=== PATIENT | female | born 1970 | race Caucasian/White ===

== ENCOUNTER → 2016-12-24 | Outpatient (CLI) | payer BC ==
--- NOTE | 2016-12-25 09:18 | MM ---
Reason for exam: screening (asymptomatic). Last mammogram was performed 2 years and 11 months ago. History: Family history of breast cancer in paternal cousin and breast cancer in paternal grandmother. Benign US breast aspiration single RT of the right breast, February 08, 2014. Benign US biopsy breast VAD RT of the right breast, February 08, 2014. Cyst aspiration of the right breast. Excisional biopsy of the left breast. Physical Findings: A clinical breast exam by your physician is recommended on an annual basis and results should be correlated with mammographic findings. MG Screening Mammo w CAD Bilateral CC and MLO view(s) were taken. Prior study comparison: January 29, 2014, bilateral MG diagnostic mammo w CAD MAAME. The breast tissue is heterogeneously dense. This may lower the sensitivity of mammography. Previous mammotome biopsy within the right breast. There is chronic nodularity bilaterally. This finding is changed when compared with previous exams, increase in size in the left breast. ASSESSMENT: Incomplete: need additional imaging evaluation, BI-RAD 0 RECOMMENDATION: Ultrasound of both breasts. [facility] will attempt to contact patient to return for ultrasound.
== END | disposition home or self-care (01) ==
LOC: RADMAMWWP 09:19
PROVIDERS: ATTEND Family Medicine
DX: Z12.31 Encounter for screening mammogram for malignant neoplasm of breast (principal); R92.8 Other abnormal and inconclusive findings on diagnostic imaging of breast

== ENCOUNTER → 2016-12-27 | Outpatient (CLI) | payer BC ==
--- NOTE | 2016-12-28 11:32 | USB ---
Bilateral limited breast ultrasound HISTORY: Abnormal mammogram Ultrasound performed of the bilateral breasts, upper outer quadrants and bilateral axillary ultrasoun d. Exam correlated to mammogram 24 December 2016 In the right breast at 10:00 position there is a 1.7 cm septated cyst present at zone B~& The left breast at the 12:00 position shows a cyst measuring 1.4 cm and an adjacent cyst measuring 3. 5 cm which appears septated. At the 12:00 position zone B to C there is a lobular focus measuring 1 x 1.2 cm which shows low level internal echoes. At the 1:00 position of the left breast MVC there is a cyst. 2:00 shows multiple small cysts, there is a focus showing low-level internal echoes adjacent to this cyst measuring approximately 1.9 cm. Subareolar region shows probable dilated ducts. IMPRESSION: Findings are suspicious of the T12 at 2:00 position of the left breast, ultrasound-guided cyst aspiration and possible core biopsy recommended. BI-RADS 4.
== END | disposition home or self-care (01) ==
LOC: RADUSWWP 14:02
PROVIDERS: ATTEND Family Medicine
DX: R92.8 Other abnormal and inconclusive findings on diagnostic imaging of breast (principal)

== ENCOUNTER → 2017-01-15 | Day surgery (SDC) | payer BC ==
[~2017-01-15] MED LIST: ALPRAZolam 0.25 MG TAB ONE; BACITRACIN OINT 1 EACH PACKET TOPICAL ONE; LIDOCAINE 1% INJ 10MG/ML (20 ML MDV) ONE; SODIUM BICARB 4% 5 ML VIAL (0.48 MEQ/ML) ONE
--- NOTE | 2017-01-15 15:14 | USB ---
EXAMINATION TYPE: US biopsy breast VAD LT DATE OF EXAM: 01/15/2017 1:04 PM CLINICAL HISTORY: R92.8 Abnormal mammo. Abnormal ultrasound TECHNIQUE: Ultrasound guided core biopsy of left breast. COMPARISON: 12/27/2016 FINDINGS: The procedure of ultrasound guided core biopsy was explained to the patient. Benefits, alternatives, and risks were discussed. An informed consent was then obtained. The patient was placed in supine positioning for imaging and for the procedure. The overlying skin was prepped and draped in usual sterile fashion. Lidocaine buffered with bicarbonate was used as anesthetic into the skin and subcutaneous tissue up to area of concern in the left breast first location 12: 00 position. A keeley was made with surgical scalpel. Under ultrasound guidance, a 12-gauge vacuum assisted biopsy gun device was used to obtain 6 core samples. Following this, a ribbon biopsy clip was left in lesion. Lidocaine buffered with bicarbonate was used as anesthetic into the skin and subcutaneous tissue up to area of concern in the left breast second location 2: 00 position. A keeley was made with surgical scalpel. Under ultrasound guidance, a 12-gauge vacuum assisted biopsy gun device was used to obtain 4 core samples. Following the initial 2 samples the area completely decompressed rapidly compatible with cyst. Two additional samples were obtained. Following this, a coil clip biopsy clip was left in lesion. The patient tolerated the procedure well without any immediate complication. The patient was kept in the radiology department for short stay after the procedure and then discharged home in stable condition. Discharge instructions were discussed with the patient. Postprocedure mammogram ordered by the physician was obtained clips are in the expected locations. IMPRESSION: Successful, uncomplicated ultrasound guided core biopsy of two areas of concern in the left breast, full pathology results to follow. Recommendations: 1. Recommendations are pending pathology results. Pathology Results: Benign A. BREAST, LEFT, 12:00, CORE BIOPSY: FIBROADENOMA AND BACKGROUND FIBROCYSTIC CHANGES INCLUDING FIBROSIS, CYSTS AND APOCRINE METAPLASIA. B. BREAST, LEFT, 2:00, CORE BIOPSY: FIBROCYSTIC CHANGES INCLUDING FIBROSIS, APOCRINE CYSTS AND FOCALLY PROMINENT HISTIOCYTES AND INFLAMMATION SUGGESTIVE OF CYST RUPTURE. Recommendation Follow up mammogram of the left breast in 6 months. MAXIMO
--- NOTE | 2017-01-15 15:18 | MM ---
EXAMINATION TYPE: MG diagnostic mammo LT wo CAD DATE OF EXAM: 01/15/2017 1:17 PM COMPARISON: 12/24/2016 CLINICAL HISTORY: Post left breast ultrasound core biopsy x2 TECHNIQUE: Mediolateral and craniocaudal views left breast FINDINGS: Orthogonal views of the left breast were obtained. Rib and clip and coil clip are present w ithin the left breast the expected regions. IMPRESSION: 1. Post procedure mammogram for clip placement x2.
== END ==
LOC: RADUSWWP 11:14
PROVIDERS: ATTEND Surgery
DX: D24.2 Benign neoplasm of left breast (principal); N60.32 Fibrosclerosis of left breast; N60.82 Other benign mammary dysplasias of left breast; N64.89 Other specified disorders of breast; N61.0 Mastitis without abscess; R92.8 Other abnormal and inconclusive findings on diagnostic imaging of breast; Z88.1 Allergy status to other antibiotic agents; Z88.0 Allergy status to penicillin; Z88.2 Allergy status to sulfonamides
CPT/HCPCS: 88305; 19083; 19084; G0206; A4648; J2001

== ENCOUNTER → 2018-11-03 | Outpatient (CLI) | payer BC ==
--- NOTE | 2018-11-03 22:37 | MR ---
EXAMINATION TYPE: MR shoulder RT wo con DATE OF EXAM: 11/03/2018 COMPARISON: Outside right shoulder x-ray October 24, 2018 HISTORY: Rt shoulder pain x 10 mos with difficulty raising overhead, no trauma TECHNIQUE: Multiplanar, multisequence imaging of the right shoulder is performed without contrast. FINDINGS: Rotator Cuff: Some increased signal in distal supraspinatus and infraspinatus tendons identified with out suspicious or discrete tear. No full-thickness retracted tear is present. Rotator cuff muscle bu lk is preserved. Subscapularis tendon is intact on axial image 12. Acromioclavicular Joint: Moderate narrowing acromioclavicular joint is present with mild spurring. In ferior fat plane is maintained. Distal acromion morphology is felt unremarkable. Glenohumeral Joint: There is mild to moderate narrowing glenohumeral joint with small to moderate eff usion. No significant spurring is seen. Labrum: The labrum appears grossly intact given limitation of non-arthrogram study. Biceps Tendon: The long head of biceps is in normal location within bicipital groove. Bone marrow signal: Heterogeneity is present. Mild subchondral cystic change posterior lateral keely l head is noted. Other: No additional significant abnormality is appreciated. IMPRESSION: 1. Some tendinosis distal supraspinatus and infraspinatus tendons. No significant rotator cuff or lab ral tear identified. 2. Mild to moderate AC joint and glenohumeral joint degenerative changes as detailed above.
== END ==
LOC: RADMRIMAIN 16:50
PROVIDERS: ATTEND Orthopaedic Surgery
DX: M75.81 Other shoulder lesions, right shoulder (principal); M19.011 Primary osteoarthritis, right shoulder

== ENCOUNTER → 2019-01-13 | Outpatient (CLI) | payer BC ==
[2019-01-13 16:25] LABS: Basophils # (A) 0.1 k/uL (0-0.2); Basophils % (A) 1 %; Eosinophils # (A) 0.2 k/uL (0-0.7); Eosinophils % (A) 3 %; HCT 41.5 % (34.0-46.0); HGB 13.1 gm/dL (11.4-16.0); Lymphocytes # (A) 2.7 k/uL (1.0-4.8); Lymphocytes % (A) 38 %; MCH 28.4 pg (25.0-35.0); MCHC 31.7 g/dL (31.0-37.0); MCV 89.6 fL (80.0-100.0); Mean Platelet Volume 7.7; Monocytes # (A) 0.3 k/uL (0-1.0); Monocytes % (A) 4 %; Neutrophils # (A) 3.7 k/uL (1.3-7.7); Neutrophils % (A) 52 %; Platelet Count 275 k/uL (150-450); RBC 4.63 m/uL (3.80-5.40); WBC 7.1 k/uL (3.8-10.6)
[2019-01-13 16:40] LABS: Potassium 4.5 mmol/L (3.5-5.1)
== END | disposition home or self-care (01) ==
LOC: LABPAT 14:41
PROVIDERS: ATTEND Orthopaedic Surgery
DX: Z01.818 Encounter for other preprocedural examination (principal); Z01.812 Encounter for preprocedural laboratory examination; M75.41 Impingement syndrome of right shoulder
CPT/HCPCS: 36415; 80051; 85025; 93005

== ENCOUNTER 2019-01-21 07:45 | Day surgery (SDC) | payer BC ==
[2019-01-19 15:48] VITALS: BMI 28.2
--- NOTE | 2019-01-20 14:31 | HP ---
HISTORY AND PHYSICAL DATE OF SERVICE: 01/21/2019 Yoli Espinoza is a 48-year-old patient seen with progressive right shoulder pain. We discussed options. She elected to proceed with arthroscopy. Consent was obtained. PAST MEDICAL HISTORY: Noncontributory. PAST SURGICAL HISTORY: Knee arthroscopy, shoulder arthroscopy, breast surgery. MEDICATIONS: Zoloft. ALLERGIES: MACROBID, PENICILLIN, SULFA. SOCIAL HISTORY: She smokes cigarettes. PHYSICAL EVALUATION OF THE RIGHT SHOULDER: Flexion is 150 degrees, abduction is 120 degrees, external rotation is 40 degrees with some weakness. There is tenderness along the anterolateral acromion rotator cuff insertion site. Impingement sign is positive at 90 degrees. Her distal neurovascular exam is intact. RADIOGRAPHS OF THE RIGHT SHOULDER: Revealed a type 2 acromion, acromioclavicular joint osteoarthritis and cystic changes of the greater tuberosity. A right shoulder MRI revealed rotator cuff tendinitis and acromioclavicular joint osteoarthritis. IMPRESSION: Right shoulder impingement with possible rotator cuff tear and acromioclavicular joint osteoarthritis. PLAN: Right shoulder arthroscopy with subacromial decompression, possible arthroscopic rotator cuff repair, probable Jeana procedure and debridement. MMODL / IJN: [id number] /
[~2019-01-21 07:45] MED LIST changes: -ALPRAZolam 0.25 MG TAB ONE; -BACITRACIN OINT 1 EACH PACKET TOPICAL ONE; +LACTATED RINGERS 1,000 ML IV SCH; -LIDOCAINE 1% INJ 10MG/ML (20 ML MDV) ONE; -SODIUM BICARB 4% 5 ML VIAL (0.48 MEQ/ML) ONE; +ceFAZolin IN SWFI 2 GM/20 ML SYRINGE IVP ONE
[2019-01-21] MEDS ORDERED: LIDOCAINE 1% 20 ML VIAL (10MG/ML) FOR IV START INTRADERMA ONE (08:25)
[2019-01-21] MEDS ORDERED: ONDANSETRON 4 MG/2 ML VIAL IVP ONE (08:30)
[2019-01-21] MEDS ORDERED: DEXAMETHASONE SOD PHOS (MDV) 100 MG/10 ML VIAL IVP ONE (08:30)
[2019-01-21] MEDS ORDERED: fentaNYL (PF) 50 MCG/ML 2 ML AMP IVP ONE (08:46)
[2019-01-21] MEDS ORDERED: MIDAZOLAM (PF) 2 MG/2 ML VIAL IVP ONE (08:46)
--- NOTE | 2019-01-21 09:03 | P.ONQ ---
Anesthesiology Proc Note - PNB - Peripheral Nerve Block Performed Right Interscalene Single Time Out Performed: Yes Procedure Start Time: 08:45 Indication: Acute Post-Operative Pain Specifically requested for management of pain by DrMariel: Leif Landis Sedation Type: Sedate with meaningful contact maintained Preparation: Sterile Prep Position: Supine Catheter: None Needle Types: Other (see comment) (pajunk) Needle Size: 50mm (2") Needle Gauge: 21 Technique: Ultrasound Injectate: 0.5% Ropivacaine (see comment for volume) (20) Blood Aspirated: No Pain Paresthesia on Injection Noted: No Resistance on Injection: Normal Events: Uneventful and Well Tolerated
[2019-01-21] MEDS ORDERED: MIDAZOLAM 2 MG/2 ML VIAL ONE (09:46)
[2019-01-21] MEDS ORDERED: LIDOCAINE 1% INJ 10MG/ML (20 ML MDV) ONE (09:46)
[2019-01-21] MEDS ORDERED: SUCCINYLCHOLINE CHLORIDE 100 MG/5 ML SYR IV ONE (09:46)
[2019-01-21] MEDS ORDERED: fentaNYL (PF) 50 MCG/ML 2 ML AMP ONE (09:46)
[2019-01-21] MEDS ORDERED: PROPOFOL 10 MG/ML 20 ML VIAL IV ONE (09:46)
[2019-01-21] MEDS ORDERED: ROPIVACAINE 5 MG/ML 30 ML VIAL ONE (09:46)
[2019-01-21] MEDS ORDERED: LACTATED RINGERS 1,000 ML IV ONE (11:00)
[2019-01-21 11:21] VITALS: RESP 16; TEMP 97
--- NOTE | 2019-01-21 11:30 | P.OP ---
Date of Procedure: 01/21/19 Preoperative Diagnosis: Right shoulder impingement Postoperative Diagnosis: 1. Right shoulder rotator cuff tear 2. Right shoulder impingement 3. Right shoulder acromioclavicular joint osteoarthritis 4. Right shoulder partial long head biceps tendon tear 5. Right shoulder superficial labral tear Procedure(s) Performed: 1. Right shoulder arthroscopic rotator cuff repair 2. Right shoulder arthroscopic subacromial decompression 3. Right shoulder arthroscopic Jeana procedure 4. Right shoulder arthroscopic biceps tenotomy 5. Right shoulder arthroscopic debridement labral tear Implants: 1Arthrex 4.75 swivel lock anchor Anesthesia: GETA, regional (Interscalene block) Surgeon: Leif Landis Medical Librarian #1: Miguel Anders Estimated Blood Loss (ml): 10 Pathology: none sent Condition: stable Disposition: PACU Indications for Procedure: 48-year-old patient seen with progressive right shoulder pain. After having treatment options discussed, she elected to proceed with arthroscopy. Operative Findings: See description of procedure Description of Procedure: Patient underwent an interscalene block by department of anesthesia for postoperative pain management. The patient was then taken to the operative suite. The patient underwent a general anesthetic by the department of anesthesia. The patient was placed into a lateral position and secured. There was appropriate padding of the bony prominence. Right shoulder was then prepped and draped in normal sterile orthopedic fashion. We placed the extremity in 10 pounds of longitudinal traction. A posterior incision was now made for a posterior working portal site. The trocar and cannula were inserted into the glenohumeral joint. Arthroscopy was initiated. Spinal needle was now inserted anteriorly, to ascertain the anterior working portal site. An incision was now made in that area, a trocar was inserted followed by a probe. There was some superficial tearing of the superior labrum. There was hyperemia partial tearing long head biceps tendon. I could see a small perforation of the rotator cuff on the supraspinatus from the glenohumeral joint. I performed an arthroscopic biceps tenotomy. I debrided the superficial labral tear down to stable tissue. The residual labrum was stable. Instruments now removed from the glenohumeral joint. Utilizing the posterior working portal site, the trocar and cannula were inserted into the subacromial space. Arthroscopy initiated. I made an incision 2 fingerbreadths lateral to the acromion. I introduced my trocar followed by my ArthroCare ablator. I now began ablating thick subacromial bursal tissue, which exposed the undersurface of the anterior acromion. There was diminished subacromial space. There was a very prominent anterior acromion. A motorized bur was introduced and a subacromial decompression was performed. I also excised some osteophytes off the inferior aspect of the distal clavicle. The AC joint was visualized and noted to be fairly arthritic. The motorized bur was introduced in the anterior portal site and a Jeana procedure was performed without difficulty, decompressing the AC joint nicely. I turned my attention to the rotator cuff. There was a 1.5 cm rotator cuff tear. I debrided the margins getting down to stable tendon tissue. I abraded the footprint with a motorized bur. I now with the assistance of Colt LONDON passed 2 everted mattress sutures through good bites of rotator cuff tendon. I now repaired the tendon right back to the footprint with the assistance of Colt LONDON utilizing one 4.75 Arthrex swivel lock anchor. All residual suture limbs were now clipped. We had good compression of the tendon along the entire footprint. I injected 1 mL Renue intra-articular area Instruments now removed from the portal sites. All portal sites were approximated with nylon suture. Sterile dressings were applied followed by a shoulder sling. Miguel LONDON assisted in this complex case. The patient was awakened, transferred to a bed, and taken to recovery in stable condition.
[2019-01-21] MEDS ORDERED: KETOROLAC 30 MG/ML 1 ML VIAL IVP ONE (11:56)
[2019-01-21 13:38] VITALS: BP 122/74; PULSE 76
[2019-01-21] MEDS ORDERED: ONDANSETRON ODT 4 MG TAB PO ONE (13:50)
[2019-01-21] MEDS ORDERED: SCOPOLAMINE 1.5MG/72HR PATCH TRANSDERM ONE (13:54)
== END 2019-01-21 14:47 | disposition home or self-care (01) ==
LOC: OR 07:45
PROVIDERS: ATTEND Orthopaedic Surgery
DX: M75.101 Unspecified rotator cuff tear or rupture of right shoulder, not specified as traumatic (principal); M75.41 Impingement syndrome of right shoulder; M19.011 Primary osteoarthritis, right shoulder; S46.111A Strain of muscle, fascia and tendon of long head of biceps, right arm, initial encounter; S43.431A Superior glenoid labrum lesion of right shoulder, initial encounter; X58.XXXA Exposure to other specified factors, initial encounter; M25.711 Osteophyte, right shoulder; F39 Unspecified mood [affective] disorder; Z87.891 Personal history of nicotine dependence; Z87.442 Personal history of urinary calculi; Z79.899 Other long term (current) drug therapy; Z88.1 Allergy status to other antibiotic agents; Z88.0 Allergy status to penicillin; Z88.2 Allergy status to sulfonamides
CPT/HCPCS: 64415; 81025; 29826; 29827; 29824; C1713; C1765; J2250 ×2; J2405; J2001; J3010; J1885; J1100; J2795; J0330; J2704; J0690

== ENCOUNTER → 2021-03-20 | Outpatient (CLI) | payer OTHER ==
[2021-03-20 16:23] LABS: Basophils # (A) 0.1 k/uL (0-0.2); Basophils % (A) 1 %; Eosinophils # (A) 0.2 k/uL (0-0.7); Eosinophils % (A) 3 %; HCT 38.8 % (34.0-46.0); HGB 13.1 gm/dL (11.4-16.0); Lymphocytes # (A) 2.8 k/uL (1.0-4.8); Lymphocytes % (A) 37 %; MCH 29.8 pg (25.0-35.0); MCHC 33.8 g/dL (31.0-37.0); MCV 88.2 fL (80.0-100.0); Mean Platelet Volume 7.4; Monocytes # (A) 0.3 k/uL (0-1.0); Monocytes % (A) 4 %; Neutrophils # (A) 4.1 k/uL (1.3-7.7); Neutrophils % (A) 54 %; Platelet Count 282 k/uL (150-450); RDW 12.8 % (11.5-15.5); WBC 7.6 k/uL (3.8-10.6)
[2021-03-20 16:40] LABS: Potassium 4.9 mmol/L (3.5-5.1)
== END | disposition home or self-care (01) ==
LOC: LABPAT 15:49
PROVIDERS: ATTEND Orthopaedic Surgery
DX: Z01.810 Encounter for preprocedural cardiovascular examination (principal); Z01.812 Encounter for preprocedural laboratory examination; M75.42 Impingement syndrome of left shoulder
CPT/HCPCS: 36415; 80051; 85025; 93005

== ENCOUNTER 2021-04-05 08:40 | Day surgery (SDC) | payer OTHER ==
[2021-03-31 12:40] VITALS: BMI 26.3
--- NOTE | 2021-04-04 14:26 | HP ---
HISTORY AND PHYSICAL REASON FOR ADMISSION: Surgery scheduled for 04/05/2021 HISTORY OF PRESENT ILLNESS: Yoli Rodarte is a 51-year-old patient seen with progressive left shoulder pain. We discussed options for treatment. She has elected to proceed with arthroscopy. Consent was obtained. PAST MEDICAL HISTORY: Anxiety. PAST SURGICAL HISTORY: Shoulder arthroscopy. MEDICATIONS: Zoloft. ALLERGIES: MACROBID, PENICILLIN, SULFA. SOCIAL HISTORY: She smokes a half pack cigarettes daily. PHYSICAL EVALUATION OF THE LEFT SHOULDER: Flexion is 130, abduction is 120, external rotation is 30 with some pain and weakness. Tenderness along the anterior lateral acromion and rotator cuff insertion site. Impingement positive at 70 degrees. Cross-body adduction sign is positive. Drop-arm sign is positive. Distal neurovascular exam is intact. RADIOGRAPHS: Radiographs of the left shoulder revealed a lateral downsloping of the acromion. An MRI revealed a significant partial rotator cuff tendon tear. IMPRESSION: 1. Left shoulder impingement with rotator cuff tear. 2. Tobacco use. PLAN: Left shoulder arthroscopy with subacromial decompression, arthroscopic rotator cuff repair and debridement. Surgery scheduled 04/05/2021. MMODL / IJN: [id number] /
[~2021-04-05 08:40] MED LIST changes: +DEXAMETHASONE SOD PHOSPHATE 4 MG/ML 1 ML VIAL IV ONE; -LACTATED RINGERS 1,000 ML IV SCH; +LIDOCAINE 1% (10MG/ML) FOR IV START INTRADERMA PRN; +MIDAZOLAM 2 MG/2 ML VIAL IV PRN; +ONDANSETRON 4 MG/2 ML VIAL IVP ONE; -ceFAZolin IN SWFI 2 GM/20 ML SYRINGE IVP ONE; +fentaNYL (PF) 50 MCG/ML 2 ML AMP IVP PRN
[2021-04-05 09:31] VITALS: TEMP 97.5
[2021-04-05] MEDS: LACTATED RINGERS 1,000 ML IV SCH ×2 (09:40→10:34)
[2021-04-05] MEDS ORDERED: SCOPOLAMINE 1.5MG/72HR PATCH TRANSDERM ONE (09:40)
[2021-04-05] MEDS ORDERED: fentaNYL (PF) 50 MCG/ML 2 ML AMP ONE (10:32)
[2021-04-05] MEDS ORDERED: PROPOFOL 10 MG/ML 20 ML VIAL IV ONE (10:32)
[2021-04-05] MEDS ORDERED: LIDOCAINE 1% INJ 10MG/ML (20 ML MDV) ONE (10:32)
[2021-04-05] MEDS ORDERED: SUCCINYLCHOLINE CHLORIDE 100 MG/5 ML SYR IV ONE (10:32)
[2021-04-05] MEDS ORDERED: MIDAZOLAM 2 MG/2 ML VIAL ONE (10:32)
--- NOTE | 2021-04-05 11:30 | P.ANPRN ---
Procedure Note - Anesthesia - Nerve Block Performed Left Interscalene Single Time Out Performed: Yes (1002) Date of Procedure: 04/05/21 Procedure Start Time: : Procedure Stop Time: : Location of Patient: PreOp Indication: Acute Post-Operative Pain, Requested by Surgeon Specifically requested for management of pain by DrMariel: Leif Landis Sedation Type: Sedate with meaningful contact maintained Preparation: Sterile Prep Position: Supine Catheter: None Needle Types: Pajunk Needle Gauge: 21 Ultrasound used to visualize needle placement: Yes Ultrasound used to observe medication spread: Yes Injectate: 0.5% Ropivacaine (see comment for volume) (30cc) Blood Aspirated: No Pain Paresthesia on Injection Noted: No Resistance on Injection: Normal Image Stored and Saved: Yes Events: Uneventful and Well Tolerated
--- NOTE | 2021-04-05 12:14 | P.OP ---
Date of Procedure: 04/05/21 Preoperative Diagnosis: Left shoulder impingement Postoperative Diagnosis: 1. Left shoulder rotator cuff tear 2. Left shoulder impingement Procedure(s) Performed: 1. Left shoulder arthroscopic rotator cuff repair 2. Left shoulder arthroscopic subacromial decompression Implants: 14.75 Arthrex swivel lock anchor Anesthesia: GETA, regional (Interscalene block) Surgeon: Leif Landis Search Engineer #1: Miguel Anders Estimated Blood Loss (ml): 11 Pathology: none sent Condition: stable Disposition: PACU Indications for Procedure: 51-year-old patient seen with progressive left shoulder pain. After treatment options were discussed, she elected to proceed with arthroscopy. Operative Findings: See description of procedure Description of Procedure: Patient underwent an interscalene block by department of anesthesia. The patient was then taken to the operative suite. The patient underwent a general anesthetic by the department of anesthesia. The patient was placed into a lateral position and secured. There was appropriate padding of the bony prominence. Left shoulder was then prepped and draped in normal sterile orthopedic fashion. We placed the extremity in 10 pounds of longitudinal traction. A posterior incision was now made for a posterior working portal site. The trocar and cannula were inserted into the glenohumeral joint. Arthroscopy was initiated. Spinal needle was now inserted anteriorly, to ascertain the anterior working portal site. An incision was now made in that area, a trocar was inserted followed by a probe. There was some superficial tearing of the labrum superiorly. The glenohumeral joint appeared stable without any evidence for significant chondromalacia. The remainder labrum was probed and found to be stable. The biceps tendon was stable. The motorize shaver was introduced I debrided out the superficial fraying of the labrum. The probe was now reintroduced and probe the labrum all the way around was found to be stable. Instruments were now removed from the glenohumeral joint. Utilizing the posterior working portal site, the trocar and cannula were inserted into the subacromial space. Arthroscopy initiated. I made an incision 2 fingerbreadths lateral to the acromion. I introduced my trocar followed by my ArthroCare ablator. I now began ablating thick subacromial bursal tissue, which exposed the undersurface of the anterior acromion. There was diminished subacromial space. There was a very prominent anterior acromion. A motorized bur was introduced and a subacromial decompression was performed. There appeared to be good decompression of subacromial space at this point. The before meals joint was stable with evidence for previous Jeana procedure. I turned my attention to the rotator cuff tendon. There was some significant partial tearing along the distal supraspinatus area. I debrided that area with a motorized shaver. I probed the area and found a full-thickness perforation. I debrided the margins getting down to stable tendon tissue. I introduced a motorized bur and abraded the footprint. The tear measured approximately 11.5 cm it was freely mobile over the footprint. I with the assistance of Colt LONDON past 3 everted mattress sutures good bites of rotator cuff tendon. I punched the hole in the footprint area for insertion of an anchor. I passed all 6 limbs of suture through the eyelet of a 4.75 Arthrex swivel lock anchor. I placed the eyelet into the pre-punched hole. I held it in position while Colt LONDON tensioned all the sutures and deployed the anchor with good fixation noted. All residual suture limbs were now clipped. We had good compression of the tendon along the entire footprint. Instruments now removed from the portal sites. All portal sites were approximated with nylon suture. Sterile dressings were applied followed by a shoulder sling. Miguel LONDON assisted in this complex case. The patient was awakened, transferred to a bed, and taken to recovery in stable condition.
[2021-04-05 12:35] VITALS: RESP 16
[2021-04-05 13:35] VITALS: BP 110/71; PULSE 77
== END 2021-04-05 13:55 | disposition home or self-care (01) ==
LOC: OR 08:40
PROVIDERS: ATTEND Orthopaedic Surgery
DX: M75.112 Incomplete rotator cuff tear or rupture of left shoulder, not specified as traumatic (principal); M25.812 Other specified joint disorders, left shoulder; F17.210 Nicotine dependence, cigarettes, uncomplicated; F41.9 Anxiety disorder, unspecified; Z79.899 Other long term (current) drug therapy; Z88.0 Allergy status to penicillin; Z88.1 Allergy status to other antibiotic agents; Z88.2 Allergy status to sulfonamides
CPT/HCPCS: 29826; 29827; 64415 ×2; 76942; C1713; J2250; J1100; J0690; J2405; J2001; J3010; J0330; J2704

== ENCOUNTER 2022-08-29 20:38 | Emergency (ER) | payer OTHER ==
[2022-08-29 21:13] VITALS: TEMP 97.8
--- NOTE | 2022-08-29 21:53 | XR ---
EXAMINATION TYPE: XR foot complete RT DATE OF EXAM: 08/29/2022 9:40 PM INDICATION: Patient age:Female; 52 years old; Reason for study: kicked couch; H. COMPARISON: None TECHNIQUE: The right foot was examined in the AP, oblique, and lateral projections. FINDINGS: Acute fracture through the fifth digit proximal phalanx shaft with 2 mm displacement. There is soft t issue swelling. No additional fractures identified. IMPRESSION: Acute minimally displaced fracture of the right fifth digit proximal phalanx shaft.
[2022-08-29 23:02] VITALS: BP 120/80; PULSE 83; RESP 18
--- NOTE | 2022-08-29 23:15 | ED ---
Lower Extremity Injury HPI - General Chief Complaint: Extremity Injury, Lower Stated Complaint: rt toe injury Time Seen by Provider: 08/29/22 22:05 Source: patient Mode of arrival: ambulatory Limitations: no limitations - History of Present Illness Initial Comments: Patient is a 52-year-old female presenting with chief complaint of right fifth toe pain. Patient states that she slammed her toe against the leg of her couch this afternoon. She tried to just walk off the pain, however as the day progressed the pain got worse. She admits to swelling and tenderness near the bottom of the fifth toe. No numbness or tingling. No discoloration. No deformity. - Related Data Home Medications Medication Instructions Recorded Confirmed Acetaminophen [Tylenol Extra 1,000 mg PO DIRECTED PRN 03/31/21 03/31/21 Strength] Adipex (Dose Unknown) 1 tab PO DAILY 03/31/21 03/31/21 Multivitamins, Thera [Multivitamin 1 tab PO DAILY 03/31/21 03/31/21 (formulary)] Previous Rx's Medication Instructions Recorded HYDROcodone/APAP 5-325MG [[place] 1 tab PO Q6HR PRN #27 tab 04/05/21 5-325] Allergies Allergy/AdvReac Type Severity Reaction Status Date / Time clarithromycin [From Biaxin] Allergy Swelling Verified 08/29/22 21:13 nitrofurantoin Allergy Swelling Verified 08/29/22 21:13 [From Macrobid] Penicillins Allergy Swelling Verified 08/29/22 21:13 Sulfa (Sulfonamide Allergy Swelling Verified 08/29/22 21:13 Antibiotics) Review of Systems ROS Statement: Those systems with pertinent positive or pertinent negative responses have been documented in the HPI. ROS Other: All systems not noted in ROS Statement are negative. Past Medical History Past Medical History: GERD/Reflux, Osteoarthritis (OA) Additional Past Medical History / Comment(s): migraines, one seizures 8 yrs ago- cause unknown, "prone to UTI's and kdiney infections", hx kidney stones- resulted in sepsis History of Any Multi-Drug Resistant Organisms: None Reported Past Surgical History: Breast Surgery, Orthopedic Surgery Additional Past Surgical History / Comment(s): rotator cuff rt shoulder, arthroscopy left knee x 2, part of bone removed from left shoulder, chava breast biopsy/markers placed, rt thumb surgery for tendon repair, rt hand cysts removed x 4, Past Anesthesia/Blood Transfusion Reactions: Previous Problems w/ Anesthesia, Postoperative Nausea & Vomiting (PONV) Additional Past Anesthesia/Blood Transfusion Reaction / Comment(s): woke up with a migraine after last shoulder surgery Past Psychological History: No Psychological Hx Reported Smoking Status: Former smoker, Vaper Past Alcohol Use History: None Reported Past Drug Use History: None Reported - Past Family History Mother Additional Family Medical History / Comment(s): melanoma Father Additional Family Medical History / Comment(s): open heart surgery,aneurysm General Exam Limitations: no limitations General appearance: alert, in no apparent distress Head exam: Present: atraumatic, normocephalic, normal inspection Eye exam: Present: normal appearance Neck exam: Present: normal inspection Right Foot/Toe exam: Present: normal inspection, tenderness at base of 5th metatarsal Neurovascular tendon exam: Present: no vascular compromise Neurological exam: Present: alert, oriented X3, CN II-XII intact Psychiatric exam: Present: normal affect, normal mood Skin exam: Present: warm, dry, intact, normal color. Absent: rash Course Vital Signs 08/29/22 08/29/22 21:11 23:00 Temperature 97.8 F Pulse Rate 84 83 Respiratory 20 18 Rate Blood Pressure 145/86 120/80 O2 Sat by Pulse 100 99 Oximetry Medical Decision Making - Medical Decision Making Patient is a 52-year-old female presenting with chief complaint of right fifth toe pain. Patient hit toe against the leg of her couch. On examination there is tenderness and pain with range of motion. She is neurovascularly intact. I interpreted the x-ray, shows acute minimally displaced fracture of the right fifth digit proximal phalanx shaft. Patient is placed in a postop shoe and educated on supportive treatment. Take Motrin and Tylenol, rest, ice, elevate the foot. Patient has previously followed with Dr. Landis, instructed to follow-up with orthopedics. Follow-up with PCP. Report back to ER with any new or worsening symptoms. Discussed return parameters and answered all questions. Patient conveyed verbal understanding and agreed to the plan. I discussed this case in detail with my attending Dr. Doshi Disposition Clinical Impression: Closed fracture of phalanx of fifth toe Disposition: HOME SELF-CARE Condition: Good Instructions (If sedation given, give patient instructions): Toe Fracture (ED), Foot Fracture in Adults (ED) Additional Instructions: Follow up with orthopedics. Report back to ER with any new or worsening symptoms. Take Motrin and Tylenol as needed for pain control. Rest, ice, elevate the foot. Use postop shoe for walking. Is patient prescribed a controlled substance at d/c from ED?: No Referrals: Pam Reddy MD [Primary Care Provider] - 1-2 days Leif Landis DO [Doctor of Osteopathic Medicine] - 1-2 days Time of Disposition: 23:15
== END 2022-08-29 23:27 | disposition home or self-care (01) ==
LOC: EC 20:38
DX: S92.511A Displaced fracture of proximal phalanx of right lesser toe(s), initial encounter for closed fracture (principal); F17.290 Nicotine dependence, other tobacco product, uncomplicated; M19.90 Unspecified osteoarthritis, unspecified site; Z88.1 Allergy status to other antibiotic agents; Z88.0 Allergy status to penicillin; Z88.2 Allergy status to sulfonamides; Z88.8 Allergy status to other drugs, medicaments and biological substances; W22.8XXA Striking against or struck by other objects, initial encounter; Y92.89 Other specified places as the place of occurrence of the external cause
CPT/HCPCS: 99284

== ENCOUNTER → 2022-12-21 | Outpatient (CLI) | payer OTHER ==
--- NOTE | 2022-12-21 10:56 | CT ---
EXAMINATION TYPE: CT abdomen pelvis wo con DATE OF EXAM: 12/21/2022 COMPARISON: 12/10/2012 HISTORY: Hematuria CT DLP: 503 mGycm Automated exposure control for dose reduction was used. TECHNIQUE: Helical acquisition of images was performed from the lung bases through the pelvis. FINDINGS: LUNG BASES: No significant abnormality is appreciated. LIVER/GB: There are multiple gallstones. PANCREAS: No significant abnormality is seen. SPLEEN: No significant abnormality is seen. ADRENALS: No significant abnormality is seen. KIDNEYS: No renal calcifications bilaterally although there is very mild right-sided hydronephrosis a nd hydroureter. There is a 4 mm calcification near the posterior margin of the bladder which could re present a right UVJ calcification. FREE AIR: No free air is visualized RETROPERITONEAL ADENOPATHY: None visualized REPRODUCTIVE ORGANS: Mild prominence of the uterine body and fundus. URINARY BLADDER: No significant abnormality is seen. PELVIC ADENOPATHY: None visualized. OSSEOUS STRUCTURES: No significant abnormality is seen. BOWEL: Retained fecal debris throughout the colon with occasional diverticula compatible with divert iculosis. Appendix not seen with certainty. OTHER: Aorta of normal caliber. Mild atherosclerotic changes. IMPRESSION: 1. CHOLELITHIASIS. 2. THERE IS MILD RIGHT-SIDED HYDRONEPHROSIS. CALCIFICATION IN THE PELVIS MEASURING 4 MM NEAR THE RIGH T UVJ IS SUSPICIOUS FOR A UVJ CALCIFICATION. 3. THERE IS MILD PROMINENCE OF THE UTERINE FUNDUS. RECOMMEND SHORT-TERM FOLLOW-UP PELVIC ULTRASOUND F OR FURTHER EVALUATION.
== END | disposition home or self-care (01) ==
LOC: RADCTMAIN 08:13
PROVIDERS: ATTEND Family Medicine
DX: K80.20 Calculus of gallbladder without cholecystitis without obstruction (principal); N13.30 Unspecified hydronephrosis
CPT/HCPCS: 74176

== ENCOUNTER 2022-12-22 20:46 | Emergency (ER) | payer OTHER ==
[2022-12-22 21:19] VITALS: BP 104/68; PULSE 86; RESP 20; TEMP 98.3
[2022-12-22] MEDS ORDERED: KETOROLAC 15 MG/ML 1 ML VIAL IVP STA (21:43)
[2022-12-22] MEDS ORDERED: ONDANSETRON 4 MG/2 ML VIAL IVP STA (21:43)
[2022-12-22] MEDS ORDERED: SODIUM CHLORIDE 0.9% 1,000 ML IV STA (21:43)
[2022-12-22 22:07] LABS: Basophils % (A) 0 %; Eosinophils # (A) 0.2 k/uL (0-0.7); Eosinophils % (A) 3 %; HCT 36.7 % (34.0-46.0); Lymphocytes # (A) 2.3 k/uL (1.0-4.8); Lymphocytes % (A) 42 %; MCH 29.6 pg (25.0-35.0); MCHC 32.6 g/dL (31.0-37.0); MCV 90.9 fL (80.0-100.0); Mean Platelet Volume 7.2; Monocytes # (A) 0.3 k/uL (0-1.0); Monocytes % (A) 5 %; Neutrophils # (A) 2.7 k/uL (1.3-7.7); Neutrophils % (A) 48 %; Platelet Count 277 k/uL (150-450); RBC 4.03 m/uL (3.80-5.40); WBC 5.6 k/uL (3.8-10.6)
[2022-12-22 22:15] LABS: ALT 20 U/L (4-34); AST 23 U/L (14-36); African American GFR (CKD) >90 (>60 ml/min/1.73 sqM); Albumin 4.5 g/dL (3.5-5.0); Alkaline Phosphatase 82 U/L (38-126); Amylase 85 U/L (30-110); Anion Gap 8 mmol/L; Blood Urea Nitrogen 10 mg/dL (7-17); Calcium 9.3 mg/dL (8.4-10.2); Carbon Dioxide 29 mmol/L (22-30); Chloride 102 mmol/L (98-107); Glucose 96 mg/dL (74-99); Lipase 138 U/L (23-300); Non-African American GFR(CKD) 85 (>60 ml/min/1.73 sqM); Potassium 4.2 mmol/L (3.5-5.1); Sodium 139 mmol/L (137-145); Total Bilirubin 0.5 mg/dL (0.2-1.3); Total Protein 7.1 g/dL (6.3-8.2)
[2022-12-22 22:21] LABS: INR 0.9 (<1.2); Partial Thromboplastin Time 24.8 sec (22.0-30.0); Prothrombin Time 9.6 sec (9.0-12.0)
--- NOTE | 2022-12-22 22:23 | ED ---
General Adult HPI - General Chief complaint: Abdominal Pain Stated complaint: kidney stone/abd pain Time Seen by Provider: 12/22/22 21:33 Source: patient, RN notes reviewed, old records reviewed Mode of arrival: ambulatory Limitations: no limitations - History of Present Illness Initial comments: Patient is a 52-year-old female who presents emergency department over concern for right-sided kidney stone. States she did require lithotripsy previously for left-sided kidney stone. Pain started last Saturday, and describes it as a right-sided sharp flank pain that began initially in the right mid back and radiated around her right flank. States her urine was dark when she presented to her PCP and she is placed on ciprofloxacin and Flomax on Saturday. States the pain is not improved. Presents today as she states that the previous time she had was septic and she is concerned that maybe Worse. Denies any fevers. Denies any abdominal pain otherwise. Denies any vomiting but does endorse mild nausea. Denies any diarrhea. No fevers. No chest pain or shortness of breath. No sick contacts. No other acute complaints at this time. Presents for further evaluation. She believes she had a CT imaging done here at our hospital yesterday looking for the kidney stone and is awaiting the results. - Related Data Allergies Allergy/AdvReac Type Severity Reaction Status Date / Time nitrofurantoin Allergy Anaphylaxis Verified 12/22/22 21:20 [From Macrobid] Penicillins Allergy Rash/Hives Verified 12/22/22 21:20 Sulfa (Sulfonamide Allergy Rash/Hives Verified 12/22/22 21:20 Antibiotics) Review of Systems ROS Statement: Those systems with pertinent positive or pertinent negative responses have been documented in the HPI. Review of Systems: CONST: Denies fever EYES: Denies blurry vision ENT: Denies nasal congestion C/V: Denies Chest pain RESP: Denies shortness of breath GI: Endorses abdominal pain : Denies dysuria SKIN: Denies rash. MSK: Denies joint pain. NEURO: Denies headache ROS Other: All systems not noted in ROS Statement are negative. Past Medical History Additional Past Medical History / Comment(s): kidney stones History of Any Multi-Drug Resistant Organisms: None Reported Past Surgical History: Orthopedic Surgery Additional Past Surgical History / Comment(s): lithotripsy, chava shoulder- rotator cuff, lt knee Past Psychological History: No Psychological Hx Reported Smoking Status: Vaper Past Alcohol Use History: None Reported Past Drug Use History: None Reported General Exam - General Exam Comments Initial Comments: General: Appears in no acute distress. HEAD: Normal with no signs of head trauma. EYES: PERRLA, EOMI, conjunctiva normal, no discharge. ENT: Hearing grossly intact, normal oropharynx. RESPIRATORY: Clear breath sounds bilaterally. No wheezes, rales, or rhonchi. C/V: Regular rate and rhythm. S1 and S2 auscultated, no edema, peripheral pulses 2+ and intact throughout ABD: Soft, nondistended. Mild right flank tender to palpation. Mild right CVA tenderness to percussion. No guarding. No peritoneal signs. No rebound tenderness. EXT: Normal range of motion, no obvious deformity SKIN: No rashes or lesions observed on exposed skin. NEURO: Alert and oriented x 4. Limitations: no limitations Course Vital Signs 12/22/22 21:15 Temperature 98.3 F Pulse Rate 86 Respiratory 20 Rate Blood Pressure 104/68 O2 Sat by Pulse 100 Oximetry Medical Decision Making - Medical Decision Making Was pt. sent in by a medical professional or institution (, PA, TWINE REELING MACHINE OPERATOR, urgent care, hospital, or fpc...) When possible be specific @ -No Did you speak to anyone other than the patient for history (EMS, parent, family, police, friend...)? What history was obtained from this source @ -No Did you review nursing and triage notes (agree or disagree)? Why? @ -I reviewed and agree with nursing and triage notes Were old charts reviewed (outside hosp., previous admission, EMS record, old EKG, old radiological studies, urgent care reports/EKG's, fpc records)? Report findings @ -Attempted to review old charts and imaging but it is not present on our system. Differential Diagnosis (chest pain, altered mental status, abdominal pain women, abdominal pain men, vaginal bleeding, weakness, fever, dyspnea, syncope, headache, dizziness, GI bleed, back pain, seizure, CVA, palpatations, mental health, musculoskeletal)? @ -Differential Abdominal Pain Women: Appendicitis, Cholecystitis, diverticulosis, ischemic bowel, pancreatitis, hepatitis, UTI, gastroenteritis, AAA, incarcerated hernia, bowel obstruction, c onstipation, inflammatory bowel, hepatitis, peptic ulcer disease, splenic infarction, perforated viscus, vulvitis, ovarian torsion, PID, kidney stone, placenta abruption, this is not meant to be an all-inclusive list EKG interpreted by me (3pts min.). @ -As above X-rays interpreted by me (1pt min.). @ -KUB x-ray shows no obvious ureteral stone. CT interpreted by me (1pt min.). @ -None done U/S interpreted by me (1pt. min.). @ -Ultrasound revealed no evidence of kidney stone. Patient does have right- sided hydronephrosis What testing was considered but not performed or refused? (CT, X-rays, U/S, labs)? Why? @ -Initially discussed obtaining a CT, however she recently had a CT we will start with ultrasound and x-rays we attempt to find results for the CT. What meds were considered but not given or refused? Why? @ -None Did you discuss the management of the patient with other professionals (professionals i.e. , PA, TWINE REELING MACHINE OPERATOR, lab, RT, psych nurse, social organization professor, sports lawyer, teacher, community cultural development officer, field nurse case manager)? Give summary @ -No Was smoking cessation discussed for >3mins.? @ -No Was critical care preformed (if so, how long)? @ -No Were there social determinants of health that impacted care today? How? (Homelessness, low income, unemployed, alcoholism, drug addiction, transportation, low edu. Level, literacy, decrease access to med. care, usp, rehab)? @ -No Was there de-escalation of care discussed even if they declined (Discuss DNR or withdrawal of care, Hospice)? DNR status @ -No What co-morbidities impacted this encounter? (DM, HTN, Smoking, COPD, CAD, Cancer, CVA, ARF, Chemo, Hep., AIDS, mental health diagnosis, sleep apnea, morbid obesity)? @ -None Was patient admitted / discharged? Hospital course, mention meds given and route, prescriptions, significant lab abnormalities, going to OR and other pe rtinent info. @ -Based on the patient's presentation and physical exam, is concerned for acute intra-abdominal process for the patient's current symptoms, likely related to urinary tract such as UTI, pyelonephritis, nephrolithiasis. Vital signs within acceptable limits. She is resting comfortable at this time. We'll provide the patient with IV fluids, Toradol, Zofran. Renal ultrasound, KUB x- ray will be obtained. Patient was in agreement this plan. KUB shows no obvious acute intra-abdominal process. No evidence of stone. Renal ultrasound does show right-sided hydronephrosis. Patient's labs are unremarkable. She does have red blood cells on the urine. Does not appear to be an infected stone. Kidney function within normal limits. After the patient results. We are unable to locate her CT imaging in the system at this time. I would like to not rescan her, as I do not want to expose her to higher amounts of radiation as I believe it is unnecessary. We did discuss this and she was in agreement this plan. Patient will be given contact info for urology. She already has Flomax for home, I recommend she continue the ciprofloxacin that was prescribed by her doctor, and we'll give her a starter pack for Tylenol threes. She was in agreement this plan. I instructed the patient to follow up with their PCP in the next 1-3 days. I explained that the patient should return to the emergency department if they experience any worsening symptoms. Strict return precautions were discussed with the patient. The patient expressed understanding of these instructions. I answered all questions that the patient had. The patient was discharged home in [good] condition with their prescriptions and follow up information. Upon further review in the charting system, patient was registered under her hyphenated last name for her computed tomography scan. I did review the CT and it showed a 4 mm stone located at the right UVJ. Mild [place] redemonstrated. I discussed with the patient after calling her back to update her on those result s. She expressed understanding. We discussed that should pass on its own. Strict return precautions discussed. Undiagnosed new problem with uncertain prognosis? @ -No Drug Therapy requiring intensive monitoring for toxicity (Heparin, Nitro, Insulin, Cardizem)? @ -No Were any procedures done? @ -No Diagnosis/symptom? @ -Ureteral lithiasis Acute, or Chronic, or Acute on Chronic? @ -Acute Uncomplicated (without systemic symptoms) or Complicated (systemic symptoms)? @ -Uncomplicated Side effects of treatment? @ -[none] Exacerbation, Progression, or Severe Exacerbation] @ -[no] Poses a threat to life or bodily function? @ -Potentially could become infected and cause issues including worsening morbidity and mortality, but currently no evidence of infection. - Lab Data Result diagrams: 12/22/22 21:47 12/22/22 21:47 Lab Results 12/22/22 12/22/22 12/22/22 Range/Units 21:47 21:47 21:47 WBC 5.6 (3.8-10.6) k/uL RBC 4.03 (3.80-5.40) m/uL Hgb 12.0 (11.4-16.0) gm/dL Hct 36.7 (34.0-46.0) % MCV 90.9 (80.0-100.0) fL MCH 29.6 (25.0-35.0) pg MCHC 32.6 (31.0-37.0) g/dL RDW 13.0 (11.5-15.5) % Plt Count 277 (150-450) k/uL MPV 7.2 Neutrophils % 48 % Lymphocytes % 42 % Monocytes % 5 % Eosinophils % 3 % Basophils % 0 % Neutrophils # 2.7 (1.3-7.7) k/uL Lymphocytes # 2.3 (1.0-4.8) k/uL Monocytes # 0.3 (0-1.0) k/uL Eosinophils # 0.2 (0-0.7) k/uL Basophils # 0.0 (0-0.2) k/uL PT 9.6 (9.0-12.0) sec INR 0.9 (<1.2) APTT 24.8 (22.0-30.0) sec Sodium (137-145) mmol/L Potassium (3.5-5.1) mmol/L Chloride (98-107) mmol/L Carbon Dioxide (22-30) mmol/L Anion Gap mmol/L BUN (7-17) mg/dL Creatinine (0.52-1.04) mg/dL Est GFR (CKD-EPI)AfAm (>60 ml/min/1.73 sqM) Est GFR (CKD-EPI)NonAf (>60 ml/min/1.73 sqM) Glucose (74-99) mg/dL Plasma Lactic Acid Jsoef (0.7-2.0) mmol/L Calcium (8.4-10.2) mg/dL Total Bilirubin (0.2-1.3) mg/dL AST (14-36) U/L ALT (4-34) U/L Alkaline Phosphatase (38-126) U/L Total Protein (6.3-8.2) g/dL Albumin (3.5-5.0) g/dL Amylase (30-110) U/L Lipase (23-300) U/L Urine Color Yellow Urine Appearance Cloudy H (Clear) Urine pH 7.0 (5.0-8.0) Ur Specific [place] 1.019 (1.001-1.035) Urine Protein Trace H (Negative) Urine Glucose (UA) Negative (Negative) Urine Ketones Negative (Negative) Urine Blood Small H (Negative) Urine Nitrite Negative (Negative) Urine Bilirubin Negative (Negative) Urine Urobilinogen <2.0 (<2.0) mg/dL Ur Leukocyte Esterase Trace H (Negative) Urine RBC 24 H (0-5) /hpf Urine WBC 7 H (0-5) /hpf Ur Squamous Epith Cells <1 (0-4) /hpf Amorphous Sediment Occasional H (None) /hpf Urine Bacteria Rare H (None) /hpf Urine Mucus Rare H (None) /hpf Urine HCG, Qual (Not Detectd) 12/22/22 12/22/22 12/22/22 Range/Units 21:47 21:47 21:47 WBC (3.8-10.6) k/uL RBC (3.80-5.40) m/uL Hgb (11.4-16.0) gm/dL Hct (34.0-46.0) % MCV (80.0-100.0) fL MCH (25.0-35.0) pg MCHC (31.0-37.0) g/dL RDW (11.5-15.5) % Plt Count (150-450) k/uL MPV Neutrophils % % Lymphocytes % % Monocytes % % Eosinophils % % Basophils % % Neutrophils # (1.3-7.7) k/uL Lymphocytes # (1.0-4.8) k/uL Monocytes # (0-1.0) k/uL Eosinophils # (0-0.7) k/uL Basophils # (0-0.2) k/uL PT (9.0-12.0) sec INR (<1.2) APTT (22.0-30.0) sec Sodium 139 (137-145) mmol/L Potassium 4.2 (3.5-5.1) mmol/L Chloride 102 (98-107) mmol/L Carbon Dioxide 29 (22-30) mmol/L Anion Gap 8 mmol/L BUN 10 (7-17) mg/dL Creatinine 0.81 (0.52-1.04) mg/dL Est GFR (CKD-EPI)AfAm >90 (>60 ml/min/1.73 sqM) Est GFR (CKD-EPI)NonAf 85 (>60 ml/min/1.73 sqM) Glucose 96 (74-99) mg/dL Plasma Lactic Acid Josef 1.1 (0.7-2.0) mmol/L Calcium 9.3 (8.4-10.2) mg/dL Total Bilirubin 0.5 (0.2-1.3) mg/dL AST 23 (14-36) U/L ALT 20 (4-34) U/L Alkaline Phosphatase 82 (38-126) U/L Total Protein 7.1 (6.3-8.2) g/dL Albumin 4.5 (3.5-5.0) g/dL Amylase 85 (30-110) U/L Lipase 138 (23-300) U/L Urine Color Urine Appearance (Clear) Urine pH (5.0-8.0) Ur Specific [place] (1.001-1.035) Urine Protein (Negative) Urine Glucose (UA) (Negative) Urine Ketones (Negative) Urine Blood (Negative) Urine Nitrite (Negative) Urine Bilirubin (Negative) Urine Urobilinogen (<2.0) mg/dL Ur Leukocyte Esterase (Negative) Urine RBC (0-5) /hpf Urine WBC (0-5) /hpf Ur Squamous Epith Cells (0-4) /hpf Amorphous Sediment (None) /hpf Urine Bacteria (None) /hpf Urine Mucus (None) /hpf Urine HCG, Qual Not Detected (Not Detectd) Disposition Clinical Impression: Ureterolithiasis Disposition: HOME SELF-CARE Condition: Good Instructions (If sedation given, give patient instructions): Kidney Stones (ED) Is patient prescribed a controlled substance at d/c from ED?: No Referrals: Pam Reddy MD [Primary Care Provider] - 1-2 days Wilton Gillespie MD [STAFF PHYSICIAN] - 1-2 days Time of Disposition: 00:06
[2022-12-22 22:31] LABS: Amorphous Sediment,Urine Occasional /hpf; Appearance,Urine Cloudy (Clear); Bacteria,Urine Rare /hpf; Bilirubin,Urine Negative (Negative); Blood,Urine Small (Negative); Color,Urine Yellow; Glucose,Urine (UA) Negative (Negative); Ketones,Urine Negative (Negative); Leukocyte Esterase,Urine Trace (Negative); Mucus,Urine Rare /hpf; Nitrite,Urine Negative (Negative); Protein,Urine Trace (Negative); RBC,Urine 24 /hpf (0-5); Specific Gravity,Urine 1.019 (1.001-1.035); Squamous Epithelial Cell,Urine <1 /hpf (0-4); Urobilinogen,Urine <2.0 mg/dL (<2.0); WBC,Urine 7 /hpf (0-5)
--- NOTE | 2022-12-22 23:00 | US ---
EXAMINATION TYPE: US renals and bladder DATE OF EXAM: 12/22/2022 COMPARISON: NONE CLINICAL HISTORY: rt flank pain, eval for hydronephrosis. Right flank pain, hematuria EXAM MEASUREMENTS: Right Kidney: 12.0 x 5.1 x 5.0 cm Left Kidney: 10.0 x 4.5 x 5.2 cm Right Kidney: hydronephrosis Left Kidney: wnl Bladder: not distended IMPRESSION: There is significant right-sided hydronephrosis. No evidence of renal mass. Left kidney appears kathie l. urinary bladder not well evaluated.
--- NOTE | 2022-12-22 23:58 | XR ---
EXAMINATION TYPE: XR KUB DATE OF EXAM: 12/22/2022 COMPARISON: NONE HISTORY: Right lower quadrant pain TECHNIQUE: 2 views upright FINDINGS: Bowel gas pattern is normal. No sign of intestinal obstruction or pneumoperitoneum. Fecal p attern is normal. No evidence of a mass. No pathologic calcifications over the kidneys. Lung bases ar e clear. IMPRESSION: Nonacute abdomen.
[2022-12-23] MEDS ORDERED: ACET/COD 300 MG/30 MG STARTER PACK 6 TAB BTL PO STA (00:11)
[2022-12-23] MEDS ORDERED: MORPHINE SULFATE 4 MG/ML SYRINGE IVP STA (00:11)
== END 2022-12-23 00:38 | disposition home or self-care (01) ==
LOC: EC 20:46 → MERGE 20:46 → EC 12-23 00:38
DX: N13.2 Hydronephrosis with renal and ureteral calculous obstruction (principal); F17.290 Nicotine dependence, other tobacco product, uncomplicated; Z88.0 Allergy status to penicillin; Z88.2 Allergy status to sulfonamides; Z88.1 Allergy status to other antibiotic agents
CPT/HCPCS: 36415; 80053; 82150; 83605; 83690; 85025; 85610; 85730; 81001; 81025; 74018; 76770; 99285; 96374; 96375; 96361 ×2; J2405; J1885

== ENCOUNTER 2022-12-23 08:03 | Observation (INO) | payer OTHER ==
[2022-12-23] MEDS ORDERED: SODIUM CHLORIDE 0.9% 2,000 ML IV STA (08:15)
[2022-12-23] MEDS ORDERED: KETOROLAC 15 MG/ML 1 ML VIAL IVP STA (08:15)
[2022-12-23] MEDS ORDERED: MORPHINE SULFATE 4 MG/ML SYRINGE IVP STA (08:16)
[2022-12-23 08:45] LABS: Basophils % (A) 0 %; Eosinophils # (A) 0.3 k/uL (0-0.7); Eosinophils % (A) 3 %; HCT 34.9 % (34.0-46.0); HGB 11.8 gm/dL (11.4-16.0); Lymphocytes # (A) 2.3 k/uL (1.0-4.8); Lymphocytes % (A) 30 %; MCH 30.6 pg (25.0-35.0); MCHC 33.7 g/dL (31.0-37.0); MCV 90.8 fL (80.0-100.0); Mean Platelet Volume 7.7; Monocytes # (A) 0.4 k/uL (0-1.0); Monocytes % (A) 6 %; Neutrophils # (A) 4.5 k/uL (1.3-7.7); Neutrophils % (A) 59 %; Platelet Count 279 k/uL (150-450); RBC 3.84 m/uL (3.80-5.40); RDW 13.1 % (11.5-15.5); WBC 7.6 k/uL (3.8-10.6)
[2022-12-23 09:14] LABS: Calcium 8.9 mg/dL (8.4-10.2); Potassium 4.4 mmol/L (3.5-5.1); Total Bilirubin 0.8 mg/dL (0.2-1.3); Total Protein 6.4 g/dL (6.3-8.2)
[2022-12-23 09:29] LABS: Appearance,Urine Clear (Clear); Bilirubin,Urine Negative (Negative); Blood,Urine Trace (Negative); Calcium Oxalate Crystals,Urine Rare /hpf; Color,Urine Yellow; Glucose,Urine (UA) Negative (Negative); Ketones,Urine Negative (Negative); Leukocyte Esterase,Urine Moderate (Negative); Mucus,Urine Rare /hpf; Nitrite,Urine Negative (Negative); Protein,Urine Negative (Negative); RBC,Urine 8 /hpf (0-5); Specific Gravity,Urine 1.016 (1.001-1.035); Squamous Epithelial Cell,Urine <1 /hpf (0-4); Urobilinogen,Urine <2.0 mg/dL (<2.0); WBC,Urine 11 /hpf (0-5)
--- NOTE | 2022-12-23 09:48 | ED ---
General Adult HPI - General Chief complaint: Recheck/Abnormal Lab/Rx Stated complaint: Abd Pain Time Seen by Provider: 12/23/22 08:08 Source: patient, family Mode of arrival: EMS Limitations: no limitations - History of Present Illness Initial comments: 52-year-old female with past medical history of nephrolithiasis presents to the emergency department reporting right flank pain. States that the pain has been going on since last Saturday. Pain is throbbing without radiation. She saw her primary care physician on Saturday. They placed her on Cipro and Flomax. She has been taking the medications all week however the pain continues. She was sent for a CT of her abdomen on Saturday which demonstrated a 4 mm stone with mild hydronephrosis. The pain became more significant last night which required the patient to come into the emergency department. She had an ultrasound and an x- ray performed. This is listed under the name "Yoli Jewell" as they did not register her with her hyphenated name. The ultrasound showed severe hydro- on the right side. She was given Toradol in the emergency department and did have improvement in her pain. She was discharged home on Tylenol 3. She took one this morning at 6:30 however her pain became significantly worse and therefore she required EMS. EMS provided the patient with 100 g of fentanyl however she continued to have 10 out of 10 pain. She admits to some hematuria. No dysuria or change in stream. Pain continues to be in the right flank. She has had history of one kidney stone previously that required intervention. This was approximately 12 years ago. She admits to nausea with dry heaving. EMS did give the patient for Zofran. Denies any vaginal bleeding or discharge. No di arrhea. No other alleviating, precipitating or modifying factors - Related Data Home Medications Medication Instructions Recorded Confirmed Ciprofloxacin HCl [Cipro] 250 mg PO BID 12/23/22 12/23/22 Dextroamphetamine/Amphetamine 20 mg PO BID@0700,1400 12/23/22 12/23/22 [Adderall] Tamsulosin [Flomax] 0.4 mg PO DAILY 12/23/22 12/23/22 Allergies Allergy/AdvReac Type Severity Reaction Status Date / Time clarithromycin [From Biaxin] Allergy Swelling Verified 12/24/22 08:22 nitrofurantoin Allergy Swelling Verified 12/24/22 08:22 [From Macrobid] Penicillins Allergy Rash/Hives Verified 12/24/22 08:22 all over Sulfa (Sulfonamide Allergy Swelling Verified 12/24/22 08:22 Antibiotics) Review of Systems ROS Statement: Those systems with pertinent positive or pertinent negative responses have been documented in the HPI. ROS Other: All systems not noted in ROS Statement are negative. Past Medical History Past Medical History: GERD/Reflux, Osteoarthritis (OA) Additional Past Medical History / Comment(s): migraines, one seizures 8 yrs ago- cause unknown, "prone to UTI's and kdiney infections", hx kidney stones- resulted in sepsis History of Any Multi-Drug Resistant Organisms: None Reported Past Surgical History: Breast Surgery, Orthopedic Surgery Additional Past Surgical History / Comment(s): rotator cuff rt shoulder, arthroscopy left knee x 2, part of bone removed from left shoulder, chava breast biopsy/markers placed, rt thumb surgery for tendon repair, rt hand cysts removed x 4, Past Anesthesia/Blood Transfusion Reactions: Previous Problems w/ Anesthesia, Postoperative Nausea & Vomiting (PONV) Additional Past Anesthesia/Blood Transfusion Reaction / Comment(s): woke up with a migraine after last shoulder surgery Past Psychological History: No Psychological Hx Reported Smoking Status: Former smoker, Vaper Past Alcohol Use History: None Reported Past Drug Use History: None Reported - Past Family History Mother Additional Family Medical History / Comment(s): melanoma Father Additional Family Medical History / Comment(s): open heart surgery,aneurysm General Exam Limitations: no limitations General appearance: alert, in no apparent distress Head exam: Present: atraumatic, normocephalic, normal inspection Eye exam: Present: normal appearance, PERRL, EOMI. Absent: scleral icterus, conjunctival injection, periorbital swelling ENT exam: Present: normal exam, mucous membranes moist Neck exam: Present: normal inspection. Absent: tenderness, meningismus, lymphadenopathy Respiratory exam: Present: normal lung sounds bilaterally. Absent: respiratory distress, wheezes, rales, rhonchi, stridor Cardiovascular Exam: Present: regular rate, normal rhythm, normal heart sounds. Absent: systolic murmur, diastolic murmur, rubs, gallop, clicks GI/Abdominal exam: Present: soft, normal bowel sounds. Absent: distended, tenderness, guarding, rebound, rigid Extremities exam: Present: normal inspection, full ROM, normal capillary refill. Absent: tenderness, pedal edema, joint swelling, calf tenderness Back exam: Present: normal inspection Neurological exam: Present: alert, oriented X3, CN II-XII intact Psychiatric exam: Present: normal affect, normal mood Skin exam: Present: warm, dry, intact, normal color. Absent: rash Course Vital Signs 12/23/22 12/23/22 08:15 09:57 Temperature 97.6 F Pulse Rate 70 68 Respiratory 18 18 Rate Blood Pressure 145/98 130/82 O2 Sat by Pulse 99 100 Oximetry - Reevaluation(s) Reevaluation #1: Awaiting urology call back 12/23/22 09:46 Medical Decision Making - Medical Decision Making Was pt. sent in by a medical professional or institution (, PA, FOSTER CARE SOCIAL WORKER, urgent care, hospital, or alf...) When possible be specific @ -No Did you speak to anyone other than the patient for history (EMS, parent, family, police, friend...)? What history was obtained from this source @ -EMS Did you review nursing and triage notes (agree or disagree)? Why? @ -I reviewed and agree with nursing and triage notes Were old charts reviewed (outside hosp., previous admission, EMS record, old EKG, old radiological studies, urgent care reports/EKG's, alf records)? Report findings @ -Reviewed yesterdays ED records Differential Diagnosis (chest pain, altered mental status, abdominal pain women, abdominal pain men, vaginal bleeding, weakness, fever, dyspnea, syncope, headache, dizziness, GI bleed, back pain, seizure, CVA, palpatations, mental health, musculoskeletal)? @ -kidney stone, ureteral stone, hydronephrosis, pyelonephritis EKG interpreted by me (3pts min.). @ -None done X-rays interpreted by me (1pt min.). @ -None done CT interpreted by me (1pt min.). @ -None done U/S interpreted by me (1pt. min.). @ -None done What testing was considered but not performed or refused? (CT, X-rays, U/S, labs)? Why? @ -None What meds were considered but not given or refused? Why? @ -None Did you discuss the management of the patient with other professionals (professionals i.e. , PA, FOSTER CARE SOCIAL WORKER, lab, RT, psych nurse, foster care social worker, commercial artist lettering, teacher, search and rescue officer, sample case porter)? Give summary @ -Dr. Gillespie Was smoking cessation discussed for >3mins.? @ -No Was critical care preformed (if so, how long)? @ -No Were there social determinants of health that impacted care today? How? (Homelessness, low income, unemployed, alcoholism, drug addiction, transportation, low edu. Level, literacy, decrease access to med. care, detention, rehab)? @ -No Was there de-escalation of care discussed even if they declined (Discuss DNR or withdrawal of care, Hospice)? DNR status @ -No What co-morbidities impacted this encounter? (DM, HTN, Smoking, COPD, CAD, C ancer, CVA, ARF, Chemo, Hep., AIDS, mental health diagnosis, sleep apnea, morbid obesity)? @ -None Was patient admitted / discharged? Hospital course, mention meds given and route, prescriptions, significant lab abnormalities, going to OR and other pertinent info. @ -Upon arrival patient was placed into room 17. There are history and physi alyce exam was performed. She was given 100 g of fentanyl by EMS. She is additionally given a dose of Toradol. Laboratory studies are conducted. I reviewed the patient's ultrasound and x-ray from last night. Additionally reviewed the patient's CT from Saturday. She continues to have pain and therefore was given or milligrams of morphine. Reevaluation demonstrates that she continues to have 7 out of 10 pain. Called and spoke with Dr. Gillespie. He does evaluate the patient in the ER. She remains nothing by mouth and will be taken for intervention at 11:30 Undiagnosed new problem with uncertain prognosis? @ -No Drug Therapy requiring intensive monitoring for toxicity (Heparin, Nitro, Insulin, Cardizem)? @ -No Were any procedures done? @ -No Diagnosis/symptom? @ -acute ureterolithiasis with hydronephrosis Acute, or Chronic, or Acute on Chronic? @ -acute Uncomplicated (without systemic symptoms) or Complicated (systemic symptoms)? @ -complicated Side effects of treatment? @ -No Exacerbation, Progression, or Severe Exacerbation? @ -No Poses a threat to life or bodily function? How? (Chest pain, [place], [place], pneumonia, PE, COPD, DKA, ARF, appy, cholecystitis, CVA, Diverticulitis, Homicidal, Suicidal, threat to staff... and all critical care pts) @ -no - Lab Data Result diagrams: 12/23/22 08:21 12/23/22 08:21 Lab Results 12/23/22 12/23/22 12/23/22 Range/Units 08:21 08:21 08:41 WBC 7.6 (3.8-10.6) k/uL RBC 3.84 (3.80-5.40) m/uL Hgb 11.8 (11.4-16.0) gm/dL Hct 34.9 (34.0-46.0) % MCV 90.8 (80.0-100.0) fL MCH 30.6 (25.0-35.0) pg MCHC 33.7 (31.0-37.0) g/dL RDW 13.1 (11.5-15.5) % Plt Count 279 (150-450) k/uL MPV 7.7 Neutrophils % 59 % Lymphocytes % 30 % Monocytes % 6 % Eosinophils % 3 % Basophils % 0 % Neutrophils # 4.5 (1.3-7.7) k/uL Lymphocytes # 2.3 (1.0-4.8) k/uL Monocytes # 0.4 (0-1.0) k/uL Eosinophils # 0.3 (0-0.7) k/uL Basophils # 0.0 (0-0.2) k/uL Sodium 140 (137-145) mmol/L Potassium 4.4 (3.5-5.1) mmol/L Chloride 108 H (98-107) mmol/L Carbon Dioxide 27 (22-30) mmol/L Anion Gap 5 mmol/L BUN 10 (7-17) mg/dL Creatinine 0.99 (0.52-1.04) mg/dL Est GFR (CKD-EPI)AfAm 77 (>60 ml/min/1.73 sqM) Est GFR (CKD-EPI)NonAf 66 (>60 ml/min/1.73 sqM) Glucose 93 (74-99) mg/dL Calcium 8.9 (8.4-10.2) mg/dL Total Bilirubin 0.8 (0.2-1.3) mg/dL AST 24 (14-36) U/L ALT 20 (4-34) U/L Alkaline Phosphatase 74 (38-126) U/L Total Protein 6.4 (6.3-8.2) g/dL Albumin 4.0 (3.5-5.0) g/dL HCG, Qual Urine Color Yellow Urine Appearance Clear (Clear) Urine pH 6.0 (5.0-8.0) Ur Specific Bowie 1.016 (1.001-1.035) Urine Protein Negative (Negative) Urine Glucose (UA) Negative (Negative) Urine Ketones Negative (Negative) Urine Blood Trace H (Negative) Urine Nitrite Negative (Negative) Urine Bilirubin Negative (Negative) Urine Urobilinogen <2.0 (<2.0) mg/dL Ur Leukocyte Esterase Moderate H (Negative) Urine RBC 8 H (0-5) /hpf Urine WBC 11 H (0-5) /hpf Ur Squamous Epith Cells <1 (0-4) /hpf Calcium Oxalate Crystal Rare H (None) /hpf Urine Mucus Rare H (None) /hpf 12/23/22 Range/Units 08:41 WBC (3.8-10.6) k/uL RBC (3.80-5.40) m/uL Hgb (11.4-16.0) gm/dL Hct (34.0-46.0) % MCV (80.0-100.0) fL MCH (25.0-35.0) pg MCHC (31.0-37.0) g/dL RDW (11.5-15.5) % Plt Count (150-450) k/uL MPV Neutrophils % % Lymphocytes % % Monocytes % % Eosinophils % % Basophils % % Neutrophils # (1.3-7.7) k/uL Lymphocytes # (1.0-4.8) k/uL Monocytes # (0-1.0) k/uL Eosinophils # (0-0.7) k/uL Basophils # (0-0.2) k/uL Sodium (137-145) mmol/L Potassium (3.5-5.1) mmol/L Chloride (98-107) mmol/L Carbon Dioxide (22-30) mmol/L Anion Gap mmol/L BUN (7-17) mg/dL Creatinine (0.52-1.04) mg/dL Est GFR (CKD-EPI)AfAm (>60 ml/min/1.73 sqM) Est GFR (CKD-EPI)NonAf (>60 ml/min/1.73 sqM) Glucose (74-99) mg/dL Calcium (8.4-10.2) mg/dL Total Bilirubin (0.2-1.3) mg/dL AST (14-36) U/L ALT (4-34) U/L Alkaline Phosphatase (38-126) U/L Total Protein (6.3-8.2) g/dL Albumin (3.5-5.0) g/dL HCG, Qual Not Detected Urine Color Urine Appearance (Clear) Urine pH (5.0-8.0) Ur Specific Bowie (1.001-1.035) Urine Protein (Negative) Urine Glucose (UA) (Negative) Urine Ketones (Negative) Urine Blood (Negative) Urine Nitrite (Negative) Urine Bilirubin (Negative) Urine Urobilinogen (<2.0) mg/dL Ur Leukocyte Esterase (Negative) Urine RBC (0-5) /hpf Urine WBC (0-5) /hpf Ur Squamous Epith Cells (0-4) /hpf Calcium Oxalate Crystal (None) /hpf Urine Mucus (None) /hpf Disposition Clinical Impression: Ureterolithiasis, Hydronephrosis due to obstruction of ureter, Flank pain Disposition: ADMITTED IP TO THIS [facility] Condition: Good Is patient prescribed a controlled substance at d/c from ED?: No Time of Disposition: 09:47 Decision to Admit Reason: Admit from EC Decision Date: 12/23/22 Decision Time: 09:47
[2022-12-23] MEDS ORDERED: NALOXONE 0.4 MG/ML 1 ML VIAL IV PRN (10:00)
[2022-12-23] MEDS ORDERED: KETOROLAC 15 MG/ML 1 ML VIAL IVP PRN (10:00)
[2022-12-23] MEDS ORDERED: ONDANSETRON 4 MG/2 ML VIAL IVP PRN (10:00)
[2022-12-23] MEDS ORDERED: MORPHINE SULFATE 4 MG/ML SYRINGE IV PRN (10:00)
--- NOTE | 2022-12-23 10:46 | P.GSHP ---
History of Present Illness H&P Date: 12/23/22 Chief Complaint: Right renal colic The patient is a 52-year-old white female with a history of urolithiasis. Approximately 13 years ago, she underwent ureteral stent insertion for a septic stone. She then underwent a secondary ureteroscopic procedure to remove the calculus. She now presents with an 8 day history of right flank pain radiating to the right lower abdomen. A urine culture obtained on December 17 showed an enterococcus UTI. She has taken ciprofloxacin since that time. A CT scan on December 21 showed mild right hydronephrosis due to a 4-6 mm right UVJ calculus. She was seen in the ER yesterday, and ultrasound showed significant right hydronephrosis. The calculus was seen at the UVJ on KUB x-ray. She returned overnight with intractable pain. - Constitutional Constitutional: Denies chills, Denies fever - Genitourinary (Female) Genitourinary: Reports flank pain, Reports hematuria, Reports kidney stones, Denies dysuria Past Medical History Past Medical History: GERD/Reflux, Osteoarthritis (OA) Additional Past Medical History / Comment(s): migraines, one seizures 8 yrs ago- cause unknown, "prone to UTI's and kdiney infections", hx kidney stones- resulted in sepsis History of Any Multi-Drug Resistant Organisms: None Reported Past Surgical History: Breast Surgery, Orthopedic Surgery Additional Past Surgical History / Comment(s): rotator cuff rt shoulder, arthroscopy left knee x 2, part of bone removed from left shoulder, chava breast biopsy/markers placed, rt thumb surgery for tendon repair, rt hand cysts removed x 4, Past Anesthesia/Blood Transfusion Reactions: Previous Problems w/ Anesthesia, Postoperative Nausea & Vomiting (PONV) Additional Past Anesthesia/Blood Transfusion Reaction / Comment(s): woke up with a migraine after last shoulder surgery Past Psychological History: No Psychological Hx Reported Smoking Status: Former smoker, Vaper Past Alcohol Use History: None Reported Past Drug Use History: None Reported - Past Family History Mother Additional Family Medical History / Comment(s): melanoma Father Additional Family Medical History / Comment(s): open heart surgery,aneurysm Medications and Allergies Home Medications Medication Instructions Recorded Confirmed Type Acetaminophen [Tylenol Extra 1,000 mg PO DIRECTED PRN 03/31/21 03/31/21 History Strength] Adipex (Dose Unknown) 1 tab PO DAILY 03/31/21 03/31/21 History Multivitamins, Thera [Multivitamin 1 tab PO DAILY 03/31/21 03/31/21 History (formulary)] HYDROcodone/APAP 5-325MG [[place] 1 tab PO Q6HR PRN #27 tab 04/05/21 Rx 5-325] Allergies Allergy/AdvReac Type Severity Reaction Status Date / Time clarithromycin [From Biaxin] Allergy Swelling Verified 12/23/22 08:19 nitrofurantoin Allergy Swelling Verified 12/23/22 08:19 [From Macrobid] Penicillins Allergy Swelling Verified 12/23/22 08:19 Sulfa (Sulfonamide Allergy Swelling Verified 12/23/22 08:19 Antibiotics) Surgical - Exam Vital Signs Temp Pulse Resp BP Pulse Ox 97.6 F 70 18 145/98 99 12/23/22 08:15 12/23/22 08:15 12/23/22 08:15 12/23/22 08:15 12/23/22 08:15 - General well developed, well nourished, no distress - Neck no masses, trachea midline - Respiratory normal respiratory effort - Abdomen Soft, non-distended. Mild right sided tenderness. No guarding, no rebound, no mass. - Psychiatric oriented to time, oriented to person, oriented to place, speech is normal, memory intact Results - Labs 12/23/22 08:21 12/23/22 08:21 Abnormal Lab Results - Last 24 Hours (Table) 12/23/22 12/23/22 Range/Units 08:21 08:41 Chloride 108 H (98-107) mmol/L Urine Blood Trace H (Negative) Ur Leukocyte Esterase Moderate H (Negative) Urine RBC 8 H (0-5) /hpf Urine WBC 11 H (0-5) /hpf Calcium Oxalate Crystal Rare H (None) /hpf Urine Mucus Rare H (None) /hpf Diabetes panel 12/23/22 Range/Units 08:21 Sodium 140 (137-145) mmol/L Potassium 4.4 (3.5-5.1) mmol/L Chloride 108 H (98-107) mmol/L Carbon Dioxide 27 (22-30) mmol/L BUN 10 (7-17) mg/dL Creatinine 0.99 (0.52-1.04) mg/dL Glucose 93 (74-99) mg/dL Calcium 8.9 (8.4-10.2) mg/dL AST 24 (14-36) U/L ALT 20 (4-34) U/L Alkaline Phosphatase 74 (38-126) U/L Total Protein 6.4 (6.3-8.2) g/dL Albumin 4.0 (3.5-5.0) g/dL Calcium panel 12/23/22 Range/Units 08:21 Calcium 8.9 (8.4-10.2) mg/dL Albumin 4.0 (3.5-5.0) g/dL Pituitary panel 12/23/22 Range/Units 08:21 Sodium 140 (137-145) mmol/L Potassium 4.4 (3.5-5.1) mmol/L Chloride 108 H (98-107) mmol/L Carbon Dioxide 27 (22-30) mmol/L BUN 10 (7-17) mg/dL Creatinine 0.99 (0.52-1.04) mg/dL Glucose 93 (74-99) mg/dL Calcium 8.9 (8.4-10.2) mg/dL Adrenal panel 12/23/22 Range/Units 08:21 Sodium 140 (137-145) mmol/L Potassium 4.4 (3.5-5.1) mmol/L Chloride 108 H (98-107) mmol/L Carbon Dioxide 27 (22-30) mmol/L BUN 10 (7-17) mg/dL Creatinine 0.99 (0.52-1.04) mg/dL Glucose 93 (74-99) mg/dL Calcium 8.9 (8.4-10.2) mg/dL Total Bilirubin 0.8 (0.2-1.3) mg/dL AST 24 (14-36) U/L ALT 20 (4-34) U/L Alkaline Phosphatase 74 (38-126) U/L Total Protein 6.4 (6.3-8.2) g/dL Albumin 4.0 (3.5-5.0) g/dL - Imaging Abdominal x-ray: report reviewed, image reviewed CT scan - abdomen: report reviewed, image reviewed US - kidney/bladder: report reviewed Assessment and Plan Assessment: The patient has intractable right renal colic due to a 4-6 mm right UVJ calculus. She is taking ciprofloxacin for an enterococcus UTI, and urinalysis at this time is not suggestive of infection. (1) Ureterolithiasis Current Visit: Yes Status: Acute Code(s): N20.1 - CALCULUS OF URETER SNOMED Code(s): 75841583 (2) Hydronephrosis due to obstruction of ureter Current Visit: Yes Status: Acute Code(s): N13.1 - HYDRONEPHROSIS W URETERAL STRICTURE, NEC SNOMED Code(s): 35375739 Plan: The patient was offered the options of continued observation with spontaneous passage versus ureteroscopic removal of the calculus. She favors the latter, and this will be performed today. Specifically, she will undergo cystoscopy, right ureteroscopy with Holmium laser lithotripsy and stone basketing, right ureteral stent insertion. The procedure has been reviewed in detail with the patient. She has been made aware of potential risks, which include anesthesia, bleeding, infection, inability to successfully remove the calculus, and ureteral injury. She will be discharged home postoperatively if she feels well and is stable. Time with Patient: Greater than 30
[2022-12-23] MEDS ORDERED: IOPAMIDOL-370 100ML BTL MISCELLANE ONE (12:00)
[2022-12-23] MEDS ORDERED: LACTATED RINGERS 1,000 ML IV ONE ×2 (12:21→13:09)
[2022-12-23] MEDS ORDERED: LEVOFLOXACIN 500MG-D5W PMX 500 MG in DEXTROSE/WATER 1 100ML.BAG IVPB SCH (12:30)
[2022-12-23] MEDS ORDERED: fentaNYL (PF) 50 MCG/ML 2 ML AMP ONE (12:31)
[2022-12-23] MEDS ORDERED: LIDOCAINE 2% INJ 20 MG/ML (2 ML VIAL) ONE (12:31)
[2022-12-23] MEDS ORDERED: ePHEDrine 50 MG/ML 1 ML VIAL ONE (12:31)
[2022-12-23] MEDS ORDERED: MIDAZOLAM 2 MG/2 ML VIAL ONE (12:31)
[2022-12-23] MEDS ORDERED: PROPOFOL 10 MG/ML 20 ML VIAL IV ONE (12:31)
[2022-12-23] MEDS ORDERED: PHENYLEPHRINE-0.9% NACL SYG 1,000 MCG/10 ML SYRINGE ONE (12:31)
[2022-12-23] MEDS ORDERED: HYDROcodone/APAP 5-325MG 1 EACH TAB PO PRN (13:29)
--- NOTE | 2022-12-23 13:29 | P.OP ---
Date of Procedure: 12/23/22 Preoperative Diagnosis: Right hydronephrosis secondary to right ureteral calculus Postoperative Diagnosis: Same Procedure(s) Performed: Cystoscopy, right ureteroscopy with Holmium laser lithotripsy and stone basketing, right ureteral stent insertion Anesthesia: ARTEMIO Surgeon: Wilton Gillespie Estimated Blood Loss (ml): 0 IV fluids (ml): 1,100 Pathology: other (Calculus fragment, sent for chemical analysis) Condition: stable Disposition: PACU Indications for Procedure: The patient is a 52-year-old white female with a history of urolithiasis. Approximately 13 years ago, she underwent ureteral stent insertion for a septic stone. She then underwent a secondary ureteroscopic procedure to remove the calculus. She now presents with an 8 day history of right flank pain radiating to the right lower abdomen. A urine culture obtained on December 17 showed an enterococcus UTI. She has taken ciprofloxacin since that time. A CT scan on December 21 showed mild right hydronephrosis due to a 4-6 mm right UVJ calculus. She was seen in the ER yesterday, and ultrasound showed significant right hydronephrosis. The calculus was seen at the UVJ on KUB x-ray. She returned overnight with intractable pain and was admitted. She has elected to undergo ureteroscopic removal of the calculus. Operative Findings: Right distal ureteral calculus, fragmented and removed completely. Description of Procedure: The patient was taken to the operating room and placed in the dorsolithotomy position, with legs supported in Cruz stirrups. The external genitalia was prepped and draped sterilely. The 30 lens was used to introduce the 21-Kyrgyz Lopez cystoscopic sheath through the urethra and into the bladder under direct vision. The bladder was examined in its entirety. The left ureteral orifice appeared normal. Edema surrounded the right ureteral orifice. No tumors or foreign bodies were seen. A 10-Kyrgyz cone-tipped catheter was used to dilate the right ureteral orifice. The Lopez semirigid ureteroscope was advanced into the bladder, but the right ureteral orifice could not be cannulated. Therefore, a 0.035 inch Glidewire was passed through the ureteroscope. The right ureteral orifice was cannulated, and the Glidewire was advanced up to the right renal pelvis. The Glidewire was backloaded into the cystoscope, which was passed into the bladder. A 4 cm, 15- Kyrgyz balloon dilating catheter was then used to dilate the intramural portion of the ureter. The cystoscope was removed, and the semirigid ureteroscope was replaced into the bladder. It was then possible to cannulate the right ureteral orifice and advanced the ureteroscope up to the calculus. The 365 micron Holmium laser probe was passed through the ureteroscope, and lithotripsy was performed. The calculus was yellow in color, but was surrounded by a white film which may have represented secondary infection. After fragmenting the calculus, a 1.5-Kyrgyz 0 tip nitinol basket was used to remove all stone fragments from the ureter. The ureter was then inspected. There were no residual calculus fragments, and no evidence of ureteral trauma. The Glidewire was passed through the ureteroscope and up to the right renal pelvis. The ureteroscope was removed, and the Glidewire was backloaded into the cystoscope, which was passed into the bladder. A 24 cm, 4.8-Kyrgyz double-J ureteral stent was placed over the wire. Proper stent positioning was verified fluoroscopically and endoscopically. The bladder was emptied and the cystoscope removed. The removed calculus fragments were sent for chemical analysis. The patient tolerated the procedure well and was taken to the recovery room in stable condition. [facility] [place] [employer] Report: Procedure Acuity: Urgent Stone Size and Location: 4 x 6 mm, right UVJ Ureteral Dilation: Balloon Dilation Ureteral Access Sheath Used: No Stone Sent for Analysis: Yes All Stones/Fragments Were Removed with a Basket: Yes Complications: No Preoperative Antibiotics Given: Yes Stent Placed: Yes If Stent Placed, Was String Left Attached: No If Stent Placed, When is it to be Removed: 2 weeks Discharge Medications: Tamsulosin, Toradol, ciprofloxacin
[2022-12-23] MEDS ORDERED: DEXTROSE 5%-0.45% NACL 1,000 ML IV SCH (13:30)
[2022-12-23 13:40] VITALS: RESP 16
[2022-12-23] MEDS ORDERED: Dextroamphetamine/Amphetamine [Adderall] 20 MG Tablet PO SCH (14:00)
--- NOTE | 2022-12-23 14:12 | FL ---
Fluoroscopy INDICATION: Pain FINDINGS: Fluoroscopy time: 6 seconds. DAP: 0.3 mGycm^2 Images obtained: 3. IMPRESSIONS: 1. Documentation of fluoroscopy.
[2022-12-23 14:19] VITALS: TEMP 97.7
[2022-12-23] MEDS: SODIUM CHLORIDE 0.9% 1,000 ML IV SCH ×2 (14:19→18:42)
[2022-12-23 16:10] VITALS: BP 129/69; PULSE 92
--- NOTE | 2022-12-23 16:43 | P.DS ---
Providers Date of admission: 12/23/22 10:00 Expected date of discharge: 12/23/22 Attending physician: Wilton Gillespie Primary care physician: Pam Reddy - Discharge Diagnosis(es) (1) Ureterolithiasis Current Visit: Yes Status: Acute (2) Hydronephrosis due to obstruction of ureter Current Visit: Yes Status: Acute Hospital Course: The patient was admitted with intractable right renal colic due to a 4 x 6 mm right distal ureteral calculus at the ureterovesical junction. She underwent ureteroscopic removal of the calculus, and her pain resolved following the procedure. She was thus discharged home. Patient Condition at Discharge: Good Plan - Discharge Summary Discharge Rx Participant: No New Discharge Prescriptions: No Action Tamsulosin [Flomax] 0.4 mg PO DAILY Dextroamphetamine/Amphetamine [Adderall] 20 mg PO BID@0700,1400 Ciprofloxacin HCl [Cipro] 250 mg PO BID Discharge Medication List Ciprofloxacin HCl [Cipro] 250 mg PO BID 12/23/22 [History] Dextroamphetamine/Amphetamine [Adderall] 20 mg PO BID@0700,1400 12/23/22 [History] Tamsulosin [Flomax] 0.4 mg PO DAILY 12/23/22 [History] Follow up Appointment(s)/Referral(s): Wilton Gillespie MD [STAFF PHYSICIAN] - 2 Weeks (please make follow up. ) Pam Reddy MD [Primary Care Provider] - 1-2 days Activity/Diet/Wound Care/Special Instructions: Diet as tolerated. Activity as tolerated. Drink plenty of fluids. Follow-up on January 04 or the week of January 07 for office cystoscopy with stent removal. continue with your course of ciprofloxacin until finished. no activity restrictions. Discharge Disposition: HOME SELF-CARE
[2022-12-24] MEDS ORDERED: TAMSULOSIN 0.4 MG CAP.ER.24H PO SCH (09:00)
== END 2022-12-23 19:20 | disposition home or self-care (01) ==
LOC: EC 08:03 → 6NMEDSUR 10:00
PROVIDERS: ADMIT Urology; ATTEND Urology
DX: N13.1 Hydronephrosis with ureteral stricture, not elsewhere classified (principal); R31.9 Hematuria, unspecified; Z87.442 Personal history of urinary calculi; Z79.899 Other long term (current) drug therapy; Z88.1 Allergy status to other antibiotic agents; Z88.0 Allergy status to penicillin; Z88.2 Allergy status to sulfonamides; Z88.8 Allergy status to other drugs, medicaments and biological substances; K21.9 Gastro-esophageal reflux disease without esophagitis; M19.90 Unspecified osteoarthritis, unspecified site; G43.909 Migraine, unspecified, not intractable, without status migrainosus; R56.9 Unspecified convulsions; Z87.898 Personal history of other specified conditions; Z98.890 Other specified postprocedural states; Z87.891 Personal history of nicotine dependence; Z80.8 Family history of malignant neoplasm of other organs or systems; Z82.49 Family history of ischemic heart disease and other diseases of the circulatory system
CPT/HCPCS: 96376; 96374; 96375; 99285; 36415; 80053; 85025; 81001; 84703; 82365; 87086; 87077; 87186; 52356; G0378; C2625; C1758; C1769; J2250; J2270; J3010; J1885; J2370; J2704; Q9967; J2001

== ENCOUNTER → 2023-01-02 | Outpatient (CLI) | payer OTHER ==
--- NOTE | 2023-01-02 10:30 | CTL ---
EXAMINATION TYPE: CT Low Dose Lung DATE OF EXAM ORDERED: 01/02/2023 HISTORY: Tobacco use. Lung cancer screening CT DLP: 49.[address] CTDI: 1.4 mGy Automated exposure control for dose reduction was used. SCREENING VISIT: Initial COMPARISON: None TECHNIQUE: Low dose computed tomography scan was performed through the chest at 1 mm thick sections a nd reconstructed images in the coronal plane at [address] DIAGNOSTIC QUALITY: Satisfactory FINDINGS: LUNG NODULES: None. LUNGS: COPD: Severity: None Fibrosis: Severity: None Lymph nodes: None Other findings: None RIGHT PLEURAL SPACE: Effusion: None Calcification: None Thickening: None Pneumothorax: None LEFT PLEURAL SPACE: Effusion: None Calcification: None Thickening: None Pneumothorax: None HEART: Heart Size: Normal Coronary calcification: None Pericardial effusion: None OTHER FINDINGS: Upper abdomen: Normal Bony thorax: Normal Supraclavicular region: Normal Other: Ascending thoracic aorta at the level the main pulmonary artery measures 3.3 cm. The main pul monary artery at the bifurcation measures 3.0 cm. IMPRESSION: 1. No suspicious changes to suggest primary or metastatic neoplasm FOLLOW UP CT CHEST RECOMMENDATION: Follow-up low-dose CT chest [address] LUNG RAD: Lung-Rad 1 Negative
== END | disposition home or self-care (01) ==
LOC: RADCTMAIN 07:57
PROVIDERS: ATTEND Nurse Practitioner Family
DX: Z12.2 Encounter for screening for malignant neoplasm of respiratory organs (principal); F17.210 Nicotine dependence, cigarettes, uncomplicated
CPT/HCPCS: 71271

== ENCOUNTER → 2023-02-21 | Outpatient (CLI) | payer OTHER ==
--- NOTE | 2023-02-22 06:21 | US ---
EXAMINATION TYPE: US kidneys/renal and bladder DATE OF EXAM: 02/21/2023 COMPARISON: CT abdomen and pelvis December 21, 2022 CLINICAL INDICATION: Female, 53 years old with history of N20.1 CALCULUS OF URETER; h/o right sided s tone with hydro in November 2022, pain has gone away now EXAM MEASUREMENTS: Right Kidney: 9.5 x 4.8 x 5.2 cm Left Kidney: 11.4 x 4.6 5.5 cm Right Kidney: mild hydronephrosis Left Kidney: No hydronephrosis or masses seen Bladder: wnl Bilateral Jets seen: Yes Persistent mild right-sided hydronephrosis. Increased Cortical echogenicity bilaterally. The urinary bladder is adequately distended. Bilateral ureteral jets are seen. IMPRESSION: Mild right-sided hydronephrosis remains present but bilateral distal ureter jets are visu alized.
== END | disposition home or self-care (01) ==
LOC: RADUSWWP 15:08
PROVIDERS: ATTEND Urology
DX: N13.2 Hydronephrosis with renal and ureteral calculous obstruction (principal)
CPT/HCPCS: 76770

== ENCOUNTER 2024-12-24 17:43 | Emergency (ER) | payer OTHER ==
--- NOTE | 2024-12-24 19:03 | XR ---
EXAMINATION TYPE: XR shoulder complete RT DATE OF EXAM: 12/24/2024 CLINICAL HISTORY: pain TECHNIQUE: Three views of the right shoulder are obtained. COMPARISON: None FINDINGS: There is no acute fracture/dislocation evident. The proximal humerus or glenoid. The devi ohumeral joint spaces appear within normal limits. There is elevation of the distal clavicle relativ e to the acromium is mild widening of the coracoclavicular joint space. Correlate for type II AC join t separation. The visualized ribs are intact and unremarkable. IMPRESSION: 1. There is elevation of the distal clavicle relative to the acromium is mild widening of the coracoc lavicular joint space. Correlate for type II AC joint separation. ICD 10 NO FRACTURE, INITIAL EVALUATION [facility], , 12/24/2024 7:01 PM
--- NOTE | 2024-12-24 19:56 | ED ---
General Adult HPI - General Chief complaint: Extremity Injury, Upper Stated complaint: R shoulder pain Time Seen by Provider: 12/24/24 18:36 Source: patient Mode of arrival: ambulatory Limitations: no limitations - History of Present Illness Initial comments: Yoli is a pleasant 54-year-old female with a history of bilateral rotator cuff injuries in the past requiring surgery. 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 Patient states over the past couple days she has developed progressively worsening aching pain in her right shoulder seems to be worse with movement pain is in the top of shoulder radiating towards the scapula. No chest pain palpitations or shortness of breath. Pain is musculoskeletal in nature worse with movement or weightbearing. Patient has pain with abduction of the arm but no pain with forward flexion or internal rotation. Patient denies any specific injury or event in which she noticed the pain appeared but notes that just progressively been getting more and more sore, she scheduled for 15-hour shift tomorrow and wanted to get checked out to prevent additional injury. - Related Data Home Medications Medication Instructions Recorded Confirmed Ciprofloxacin HCl [Cipro] 250 mg PO BID 12/23/22 12/23/22 Dextroamphetamine/Amphetamine 20 mg PO BID@0700,1400 12/23/22 12/23/22 [Adderall] Tamsulosin [Flomax] 0.4 mg PO DAILY 12/23/22 12/23/22 Allergies Allergy/AdvReac Type Severity Reaction Status Date / Time clarithromycin [From Biaxin] Allergy Swelling Verified 12/24/24 17:57 nitrofurantoin Allergy Swelling Verified 12/24/24 17:57 [From Macrobid] Penicillins Allergy Rash/Hives Verified 12/24/24 17:57 all over Sulfa (Sulfonamide Allergy Swelling Verified 12/24/24 17:57 Antibiotics) Review of Systems ROS Statement: Those systems with pertinent positive or pertinent negative responses have been documented in the HPI. ROS Other: All systems not noted in ROS Statement are negative. Past Medical History Past Medical History: GERD/Reflux, Osteoarthritis (OA) Additional Past Medical History / Comment(s): kidney stones History of Any Multi-Drug Resistant Organisms: None Reported Past Surgical History: Breast Surgery, Orthopedic Surgery Additional Past Surgical History / Comment(s): lithotripsy, chava shoulder- rotator cuff, lt knee Past Anesthesia/Blood Transfusion Reactions: Previous Problems w/ Anesthesia, Postoperative Nausea & Vomiting (PONV) Additional Past Anesthesia/Blood Transfusion Reaction / Comment(s): woke up with a migraine after last shoulder surgery Past Psychological History: No Psychological Hx Reported Smoking Status: Vaper, Former smoker - Past Family History Mother Additional Family Medical History / Comment(s): melanoma Father Additional Family Medical History / Comment(s): open heart surgery,aneurysm General Exam - General Exam Comments Initial Comments: Physical Exam GENERAL: Patient is well-developed and well-nourished. Patient is nontoxic and well-hydrated and is in no distress. HENT: Normocephalic, Atraumatic. EYES: PERRL, EOMI PULMONARY: Unlabored respirations. CARDIOVASCULAR: RRR Warm and well perfused extremities ABDOMEN: Non-distended SKIN: No rashes or bruising : Deferred NEUROLOGIC: Alert and oriented Normal speech Normal gait MUSCULOSKELETAL: Pain with abduction of the right arm, no pain with empty can test, no pain with palpation of the bicipital tendons PSYCHIATRIC: No SI/HI Limitations: no limitations Course Vital Signs 12/24/24 12/24/24 17:45 20:20 Temperature 98.3 F 97.7 F Pulse Rate 65 66 Respiratory 17 18 Rate Blood Pressure 143/94 133/82 O2 Sat by Pulse 100 99 Oximetry Medical Decision Making - Medical Decision Making Was pt. sent in by a medical professional or institution (SURYA Swanson, MINIATURE TRAIN DRIVER, urgent care, hospital, or residential...) When possible be specific @ -No Did you speak to anyone other than the patient for history (EMS, parent, family, police, friend...)? What history was obtained from this source @ -No Did you review nursing and triage notes (agree or disagree)? Why? @ -I reviewed and agree with nursing and triage notes Were old charts reviewed (outside hosp., previous admission, EMS record, old EKG, old radiological studies, urgent care reports/EKG's, residential records)? Report findings @ -No old charts were reviewed Differential Diagnosis (chest pain, altered mental status, abdominal pain women, abdominal pain men, vaginal bleeding, weakness, fever, dyspnea, syncope, headache, dizziness, GI bleed, back pain, seizure, CVA, palpatations, mental health)? @ -Not applicable EKG interpreted by me (3pts min.). @ -As above X-rays interpreted by me (1pt min.). @ -AC separation no fractures or dislocation CT interpreted by me (1pt min.). @ -None done U/S interpreted by me (1pt. min.). @ -None done What testing was considered but not performed or refused? (CT, X-rays, U/S, labs)? Why? @ -None What meds were considered but not given or refused? Why? @ -None Did you discuss the management of the patient with other professionals (professionals i.e. , PA, MINIATURE TRAIN DRIVER, lab, RT, psych nurse, health social work professor, tint layer, teacher, special police officer, welfare case worker)? Give summary @ -No Was smoking cessation discussed for >3mins.? @ -No Was critical care preformed (if so, how long)? @ -No Were there social determinants of health that impacted care today? How? (Homelessness, low income, unemployed, alcoholism, drug addiction, transportation, low edu. Level, literacy, decrease access to med. care, prison, rehab)? @ -No Was there de-escalation of care discussed even if they declined (Discuss DNR or withdrawal of care, Hospice)? DNR status @ -No What co-morbidities impacted this encounter? (DM, HTN, Smoking, COPD, CAD, Cancer, CVA, ARF, Chemo, Hep., AIDS, mental health diagnosis, sleep apnea, morbid obesity)? @ -None Was patient admitted / discharged? Hospital course, mention meds given and route, prescriptions, significant lab abnormalities, going to OR and other pertinent info. @ -Discharged home The patient was seen and evaluated x-rays were obtained and show chronic AC separation no acute findings discussed with the patient she likely has an overuse injury she can follow with orthopedic doctor care edema so she is established with she may have additional treatment such as steroid injections or referral to physical therapy or possible additional imaging such as MRI for possible surgical planning should it be identified of any rotator cuff injury. Patient expressed understanding of this. Appropriate dosing of Tylenol Motrin was discussed patient was discharged home in stable condition. Undiagnosed new problem with uncertain prognosis? @ -No Drug Therapy requiring intensive monitoring for toxicity (Heparin, Nitro, Insulin, Cardizem)? @ -No Were any procedures done? @ -No Diagnosis/symptom? @ -Right shoulder pain Acute, or Chronic, or Acute on Chronic? @ -Default Uncomplicated (without systemic symptoms) or Complicated (systemic symptoms)? @ -Default Side effects of treatment? @ -No Exacerbation, Progression, or Severe Exacerbation? @ -No Poses a threat to life or bodily function? How? (Chest pain, [place], [place], pneumonia, PE, COPD, DKA, ARF, appy, cholecystitis, CVA, Diverticulitis, Homicidal, Suicidal, threat to staff... and all critical care pts) @ -No Disposition Clinical Impression: Shoulder pain, right Disposition: HOME SELF-CARE Condition: Stable Instructions (If sedation given, give patient instructions): Tendinitis (ED) Is patient prescribed a controlled substance at d/c from ED?: No Referrals: Leif Landis DO [Doctor of Osteopathic Medicine] - 1-2 days
[2024-12-24 20:21] VITALS: BP 133/82; PULSE 66; RESP 18; TEMP 97.7
== END 2024-12-24 20:21 | disposition home or self-care (01) ==
LOC: EC 17:43
DX: M25.511 Pain in right shoulder (principal); F17.290 Nicotine dependence, other tobacco product, uncomplicated; Z88.2 Allergy status to sulfonamides; Z88.0 Allergy status to penicillin; Z88.1 Allergy status to other antibiotic agents; Z88.8 Allergy status to other drugs, medicaments and biological substances
CPT/HCPCS: 99283